=== PATIENT | male | born 1965 | race African-American/Black ===

== ENCOUNTER 2019-10-31 11:27 | Inpatient (IN) | payer MEDICAID, OTHER ==
[2019-10-31] MEDS ORDERED: Lorazepam 2 MG/ML VIAL ONE (11:41)
[2019-10-31] MEDS ORDERED: levETIRAcetam 1000 MG/100 ML PREMIX BAG ONE (11:49)
[2019-10-31 12:13] LABS: Hemoglobin 10.3 g/dL (14.0-18.0); Mean Corpuscular HGB CONC 31.8 g/dL (32.0-36.0); Mean Corpuscular Hemoglobin 27.6 pg (27.0-31.0); Mean Corpuscular Volume 86.8 fL (78.0-98.0); Mean Platelet Volume 7.2 fL (7.4-10.4); Platelet Count 181 thou/uL (130-400); RBC Distribution Width 12.6 % (11.5-14.5); Red Blood Cell (RBC) Count 3.72 mill/uL (4.70-6.10); White Blood Cell (WBC) Count 12.4 thou/uL (4.8-10.8)
[2019-10-31 12:33] LABS: ALT (SGPT) 33 U/L (8-55); AST (SGOT) 34 U/L (5-34); Albumin 2.7 g/dL (3.5-5.0); Alkaline Phosphatase 240 U/L (40-110); Anion Gap 24 mmol/L (10-20); BUN (Urea Nitrogen) 24 mg/dL (8.4-25.7); Band 22 % (5-11); Bilirubin, Total 1.6 mg/dL (0.2-1.2); CK (CPK) 132 U/L (30-200); Calc. Creatinine Clearance 0 mL/min (70-130); Calcium 8.1 mg/dL (7.8-10.44); Carbon Dioxide 17 mmol/L (22-29); Chloride 99 mmol/L (98-107); Estimated GFR-MDRD 37; Globulin 3.7 g/dL (2.4-3.5); Glucose 182 mg/dL (70-105); Lipase 18 U/L (8-78); Lymphocytes 3 % (21-51); MDiff Complete? YES; Metamyelocyte 5 % (0-0); Monocytes 1 % (0-10); Neutrophil 69 % (42-75); Nucleated RBC 1 % (0); Platelet Morphology Comment Appears Adequate; Polychromasia SLIGHT = 2-3 cells (100X) (0-2/hpf); Potassium 3.7 mmol/L (3.5-5.1); Protein, Total 6.4 g/dL (6.0-8.3); Sodium 136 mmol/L (136-145); Vacuoles SLIGHT
--- NOTE | 2019-10-31 12:33 | RAD ---
XR Chest 1 View Portable HISTORY: Unresponsive, altered mental status COMPARISON: None FINDINGS: The heart size is enlarged. There is elevation of the right hemidiaphragm. No lobar consoli dation, pneumothoraces, jeff pulmonary edema or large effusions are seen. Air bronchograms are noted in the left retrocardiac region. Possibility of developing consolidation cannot be excluded.
--- NOTE | 2019-10-31 12:35 | CT ---
CT BRAIN WITHOUT CONTRAST: HISTORY: Altered mental status COMPARISON: 08/16/2019 FINDINGS: Changes of chronic small vessel ischemic disease are again seen. Tiny calcifications are again noted. No evidence of acute infarct, hemorrhage, midline shift or abnormal extra-axial fluid collections is seen. The ventricular size is appropriate and the basilar cisterns are patent. The bony calvarium is intact. There is mucosal disease in the paranasal sinuses. IMPRESSION: No CT evidence of acute intracranial process.
[2019-10-31] MEDS ORDERED: Vancomycin 1 GM/200 ML BAG ONE (12:39)
[2019-10-31] MEDS ORDERED: Cefepime 2 GM VIAL ONE (12:39)
[2019-10-31 12:55] LABS: CKMB 1.3 ng/mL (0-6.6)
--- NOTE | 2019-10-31 14:59 | RAD ---
PORTABLE CHEST ONE VIEW: 10/31/19 at 1:38 p.m. HISTORY: Central line placement. FINDINGS/IMPRESSION: There has been interval placement of a left subclavian central line with tip in the projection of the SVC since earlier exam of 11:57 a.m. from the same date. No pneumothorax is seen. No lobar consolida tion, pneumothoraces, or pleural effusions are identified. There is continued elevation of the right hemidiaphragm. POS: OFF
[2019-10-31 15:07] LABS: Lactic Acid 8.2 mmol/L (0.5-2.2)
[2019-10-31 15:11] LABS: Bilirubin Small (Negative); Blood, Urine Large (Negative); Glucose, Urine (Dipstick) 100 mg/dL (Negative); Leukocyte Large (Negative); Nitrite Negative (Negative); Protein, Urine (Dipstick) > or equal to 300 mg/dL (Neg-Trace)
[2019-10-31 15:16] LABS: Clarity Turbid (Clear)
[2019-10-31 15:23] LABS: RBC/HPF Greater than 50 HPF (0-3); Squamous Epithelial 0-3 HPF (0-3); Transitional Epithelial 0-3 HPF (None Seen); WBC/HPF Greater Than 50 HPF (0-3)
[2019-10-31 15:24] LABS: Bacteria/HPF 1+ HPF (None Seen)
[2019-10-31 16:18] LABS: CSF Source CSF; Tube # 4
[2019-10-31 16:19] LABS: Clarity Clear (Clear)
[2019-10-31 16:21] LABS: CSF Source CSF; CSF, Glucose 120 mg/dl (40-70); CSF, Protein 58 mg/dL (15-40); Clarity Clear (Clear); Tube # 1
[2019-10-31 16:28] LABS: CSF RBC Count - Manual 18 /cu.mm (None Seen); CSF WBC/NonHematics Count-Man 3 /cu.mm (0-5)
[2019-10-31] MEDS ORDERED: Acetaminophen 325 MG TAB PO PRN (16:28)
[2019-10-31] MEDS ORDERED: Ondansetron PF 4 MG/2 ML Vial IVP PRN (16:28)
[2019-10-31] MEDS ORDERED: Acetaminophen 650 MG Suppository PR PRN (16:28)
[2019-10-31 16:29] LABS: CSF RBC Count - Manual 0 /cu.mm (None Seen); CSF WBC/NonHematics Count-Man 3 /cu.mm (0-5)
[2019-10-31] MEDS ORDERED: Lorazepam 2 MG/ML VIAL SLOW IVP PRN (16:30)
[2019-10-31] MEDS ORDERED: Vancomycin 1 GM in Premix Bag 1 BAG IVPB SCH (16:45)
[2019-10-31] MEDS ORDERED: Norepinephrine 8 MG/0.9% NS 250 ML IVPB SCH (16:45)
[2019-10-31 16:51] LABS: Color Of CSF Supernatant COLORLESS (Colorless); Tube # 2; Unspun CSF Color COLORLESS (Colorless)
[2019-10-31] MEDS ORDERED: Lacosamide 50 MG in Sodium Chloride 0.9% 50 ML IVPB SCH (17:00)
[2019-10-31] MEDS: Sodium Chloride 0.9% 1,000 ML IV SCH (17:15)
--- NOTE | 2019-10-31 17:31 | HP ---
PRIMARY CARE PROVIDER: Zurdo Jordan MD CHIEF COMPLAINT: Seizure. HISTORY OF PRESENT ILLNESS: Mr. Lau is a 53-year-old gentleman, who was seen at [facility] on October 31, 2019. He is a resident at [facility]. He was brought to the emergency room for hypotension with systolic blood pressure in the 70s and seizure activity according to EMS. EMS was called to the longterm when the nurse noticed that the blood pressures were low. It is unclear if he had fever at that time. He reportedly had eyes rolling towards the left side. There is no known history of seizures. He reportedly had a CVA in the past. There is no history of cough, nausea, vomiting or diarrhea. The patient himself is unable to answer any questions. His baseline is unclear. I tried contacting his family, but I could not reach them. Collateral history was obtained from discussion with emergency room physician and review of medical records. REVIEW OF SYSTEMS: Could not be completed due to the patient's cognitive status. MEDICAL HISTORY: Urinary retention, vascular dementia with behavioral disturbances, diabetes mellitus type 2, dyslipidemia, hypertension, ischemic cerebrovascular accident with right-sided deficits. SURGICAL HISTORY: Unable to obtain. PSYCHIATRIC HISTORY: Depression. SOCIAL HISTORY: Unable to obtain. FAMILY HISTORY: Unable to obtain. ALLERGIES: NO KNOWN DRUG ALLERGIES. HOME MEDICATIONS: 1. Amlodipine 10 mg daily. 2. Ascorbic acid 500 mg daily. 3. Aspirin 81 mg daily. 4. Atorvastatin 40 mg daily. 5. Coreg 12.5 mg 2 times a day. 6. Chlorthalidone 25 mg daily. 7. Glipizide 2.5 mg daily and 5 mg in the morning. 8. Metformin 1000 mg 2 times a day. 9. Magnesium oxide 400 mg daily. 10. Multivitamins one tablet daily. 11. Paxil 20 mg daily. 12. Polyethylene glycol p.r.n. 13. Zinc 220 mg daily. PHYSICAL EXAMINATION: GENERAL: On examination, Mr. Lau is obtunded, not waking up. He was initially hypotensive when he arrived at the emergency room, with a blood pressure of 87/66. Currently, he has blood pressure of 110/76, pulse 114, respiratory rate 19, and oxygen saturation 98% on room air. T-max in the emergency room was 99.6 degrees Fahrenheit. EYES: He has scleral icterus. ENT: Mucosal membranes are moist. NECK: Trachea is midline. There is no cervical lymphadenopathy. RESPIRATORY: Accessory muscles of breathing are not active. Chest wall movements are symmetric bilaterally. Lungs are clear to auscultation without wheeze, rhonchi or crepitations. CARDIOVASCULAR: S1 and S2 are heard, tachycardic and regular. Peripheral pulses palpable. ABDOMEN: Soft, nontender, bowel sounds are heard. NEUROLOGIC: Full neurologic examination was not possible secondary to the patient's noncooperation. There is no facial droop. Deep tendon reflexes are 2+, plantars downgoing bilaterally. MUSCULOSKELETAL: Could not assess secondary to the patient's obtunded status. SKIN: No rashes. He has multiple keloids over his chest. LYMPHATIC: No cervical lymphadenopathy. PSYCHIATRIC: Unable to assess mood, affect or orientation to person, place or time. LABORATORY DATA: Mr. Lau's labs and investigations were reviewed. I reviewed his electrocardiogram, which shows sinus tachycardia, no ST changes to suggest an acute coronary syndrome. I also reviewed his chest x-ray, which shows cardiomegaly. There is no consolidation. He has leukocytosis with 12,400 white cells, of which 69% are neutrophils and 22% band neutrophils, normocytic anemia with hemoglobin of 10.3, normal platelet count, normal sodium, normal potassium, normal blood urea nitrogen, elevated creatinine of 2.26, elevated anion gap of 24, decreased carbon dioxide of 17, lactic acid elevated at 13.1, total bilirubin elevated at 1.6, normal AST, normal ALT, elevated alkaline phosphatase of 240, normal creatine kinase, indeterminate troponin-I of 0.070, elevated BNP of 245, decreased albumin of 2.7, normal TSH, elevated prolactin level of 88.4. Urinalysis is positive for blood and leukocyte esterase, negative for nitrite. CSF studies are pending. ASSESSMENT AND PLAN: Mr. Lau is a pleasant 53-year-old gentleman, who was seen at [facility] on October 31, 2019. His problem list includes: 1. Sepsis: Mr. Lau is presenting with sepsis, etiology is unclear. It is possible he may have aspirated during his seizure. Alternatively, it could be secondary to urinary tract infection. Meningitis is being ruled out. COVID-19 is being ruled out. He will be admitted to the CCU mainly because of episodes of hypotension in the emergency room. He already has a central line placed by the emergency room physician. He has received vancomycin and cefepime. I will continue these and add metronidazole until he stabilizes. 2. New-onset seizures: Etiology is unclear. It is possible that the seizure was provoked by episode of hypotension. I will obtain MRI of the brain. He has received Keppra in the emergency room, which I will continue. Neurology Service will be consulted for opinion and help with management. He will be on seizure precautions. 3. Hypotension: The patient appears to be responding to fluid resuscitation. We will continue fluids. We will start Levophed if hypotension recurs and the patient does not respond to intravenous fluids. 4. Diabetes mellitus, type 2: I will start him on Accu-Cheks and insulin sliding scale. The patient will be n.p.o. until the mental status improves. 5. Hypertension: We will hold his antihypertensives for now, given episodes of hypotension. We will reassess antihypertensives after he improves. 6. Dyslipidemia: We will resume statin when the patient is able to take medications. 7. Lactic acidosis: Most likely secondary to seizure, although lactic acidosis secondary to severe sepsis is possible as well. 8. Abnormal LFTs: Could be secondary to hypotension and sepsis. We will recheck LFTs in the morning. Many thanks for allowing me to participate in your patient's care. Please feel free to contact me with any questions or concerns. LEVEL OF RISK: High. LEVEL OF COMPLEXITY: High. ADDENDUM: Mr. Lau also appears to have acute kidney injury, most likely secondary to severe sepsis. I will provide him intravenous hydration and recheck his creatinine. His CK level is normal. Therefore, it does not appear to be secondary to . Job ID: [id number]
[2019-10-31] MEDS: metroNIDAZOLE 500 MG in Premix Bag 1 BAG IVPB SCH (18:26)
[2019-10-31 18:49] LABS: Troponin I 0.065 ng/mL (< 0.028)
[2019-10-31] MEDS ORDERED: Famotidine 20 MG TAB PO SCH (21:00)
[2019-10-31] MEDS ORDERED: levETIRAcetam In NaCl (Iso-Os) 1,000 MG in Premix Bag 1 BAG IVPB SCH (21:00)
[2019-10-31] MEDS: Heparin 5,000 UNITS/ML VIAL SC SCH (21:28)
[2019-10-31] MEDS: Famotidine/PF 20 mg/2ml Vial SLOW IVP SCH (21:31)
--- NOTE | 2019-10-31 21:50 | CON ---
DATE OF CONSULTATION: 10/31/2019 This is a consultation request by Dr. Myrick for ICU management. HISTORY OF PRESENT ILLNESS: This is a 53-year-old male, who presented to the emergency room from a skilled nursing with low blood pressure and some seizure activity. He had to be started on a Levophed drip as his blood pressure did not completely respond to fluids. Apparently, he can talk some at baseline, but has not been talking. He was found to have a malpositioned Palomino with evidence of urinary tract infection. PAST MEDICAL HISTORY: 1. Dementia. 2. Some type of behavioral disorder. 3. Diabetes mellitus type 2. 4. Hyperlipidemia. 5. Hypertension. 6. Vascular disease. 7. Urinary retention. PAST SURGICAL HISTORY: Unknown. SOCIAL HISTORY: Unknown. FAMILY HISTORY: Unknown. ALLERGIES: NONE. MEDICATIONS: Prior to admission; 1. Amlodipine. 2. Ascorbic acid. 3. Aspirin. 4. Atorvastatin. 5. Coreg. 6. Chlorthalidone. 7. Glipizide. 8. Metformin. 9. Magnesium oxide. 10. Paxil. 11. Polyethylene glycol. 12. Zinc. REVIEW OF SYSTEMS: Cannot be obtained secondary to the patient's altered mental status. PHYSICAL EXAMINATION: VITAL SIGNS: Pulse 131, blood pressure 101/60, O2 saturation 93%, and respiratory rate 24. He is currently on Levophed drip. He is also on normal saline. HEENT: Unremarkable. NECK: No adenopathy or JVD. CHEST: Has a bit keloid scar. LUNGS: Clear. CARDIAC: S1 and S2. Regular without audible murmur. ABDOMEN: Soft and nontender to palpation. : He has bleeding around his urethral meatus. He has a Palomino catheter in place. EXTREMITIES: He has no cyanosis or edema. His skin looks intact throughout. IMAGING DATA: His chest x-ray shows a left subclavian central line in place. There is no obvious mass, effusion, or infiltrate. His heart size is mildly enlarged. LABORATORY DATA: White blood cell count 12.4, hematocrit 32, and platelet count 181, with 69% neutrophils and 22% bands. BNP level is 245 and troponin 0.065. Prolactin level of 88.4. Sodium 136, potassium 3.7, chloride 99, CO2 of 17, BUN 24, creatinine 2.3, and glucose 182. Urinalysis showed greater than 50 white blood cells. ASSESSMENT: 1. Hypotension. 2. Seizure episode. 3. Sepsis secondary to urinary tract infection. 4. Possible aspiration pneumonia after seizure. 5. Diabetes mellitus. PLAN: 1. He will be kept in the ICU on a Levophed drip to begin IV fluids. Agree with cefepime, vancomycin, and metronidazole. 2. Continue IV hydration. 3. Add Pepcid for GI prophylaxis. 4. He is on heparin for DVT prophylaxis. Following encompassed 70 minutes time. Job ID: [id number]
[2019-11-01] MEDS: Sodium Chloride 0.9% 1,000 ML IV SCH ×3 (01:38→13:53)
[2019-11-01] MEDS: metroNIDAZOLE 500 MG in Premix Bag 1 BAG IVPB SCH ×2 (01:38→09:02)
[2019-11-01 05:46] LABS: Band 25 % (5-11); Hemoglobin 9.7 g/dL (14.0-18.0); Lymphocytes 1 % (21-51); MDiff Complete? YES; Mean Corpuscular HGB CONC 31.3 g/dL (32.0-36.0); Mean Corpuscular Volume 86.2 fL (78.0-98.0); Mean Platelet Volume 8.2 fL (7.4-10.4); Monocytes 2 % (0-10); Neutrophil 71 % (42-75); Platelet Count 154 thou/uL (130-400); Platelet Morphology Comment Appears Adequate; RBC Distribution Width 12.9 % (11.5-14.5); RBC Morphology Normal; Reactive Lymphocytes 1 % (0-10); White Blood Cell (WBC) Count 38.1 thou/uL (4.8-10.8)
[2019-11-01 05:50] LABS: Anion Gap 17 mmol/L (10-20); BUN (Urea Nitrogen) 38 mg/dL (8.4-25.7); Calc. Creatinine Clearance 35 mL/min (70-130); Calcium 7.3 mg/dL (7.8-10.44); Carbon Dioxide 20 mmol/L (22-29); Chloride 103 mmol/L (98-107); Estimated GFR-MDRD 24; Glucose 253 mg/dL (70-105); Potassium 3.9 mmol/L (3.5-5.1); Sodium 136 mmol/L (136-145)
[2019-11-01 05:52] LABS: ALT (SGPT) 44 U/L (8-55); AST (SGOT) 63 U/L (5-34); Albumin 2.5 g/dL (3.5-5.0); Alkaline Phosphatase 117 U/L (40-110); Bilirubin, Direct 1.7 mg/dL (0.1-0.3); CK (CPK) 2689 U/L (30-200); Protein, Total 6.2 g/dL (6.0-8.3)
[2019-11-01] MEDS ORDERED: Meropenem 1 GM in Sodium Chloride 0.9% 100 ML IVPB SCH (08:45)
[2019-11-01] MEDS ORDERED: Sodium Chloride 0.9% 1,000 ML IV SCH ×3 (08:45→19:24)
--- NOTE | 2019-11-01 08:49 | PRG ---
DATE OF SERVICE: 11/01/2019 TIME SPENT: 35 minutes of critical care time. SUBJECTIVE: The patient remains in the CCU on Levophed drip. He is now starting to arouse. He said basically just groans when I am asking questions. OBJECTIVE: VITAL SIGNS: On exam, temperature is 99, pulse 126, blood pressure 83/53, and O2 saturation 99%. A 24-hour intake 1287, output 155. HEENT: Unremarkable. NECK: No JVD. CHEST: Clear. CARDIAC: S1 and S2. Regular. Tachycardic. ABDOMEN: Soft. EXTREMITIES: No edema. LABORATORY DATA: Sodium of 136, potassium 3.9, chloride 103, CO2 of 20, BUN 38, creatinine 3.3, and glucose 253. CPK 2689. Lactate 8.2. White blood cell count 38.1, hematocrit 31, and platelet count 154. Cultures have grown out gram-negative rods from the Palomino and 2/2 culture balls. ASSESSMENT: Gram-negative sepsis from urinary tract infection. PLAN: 1. Add Levaquin to the cefepime and double cover for gram-negatives for the time being. 2. Discontinue vancomycin since this appears to be gram-negative sepsis and not staphylococcal sepsis bolus him a liter of saline. Dr. Nuñez has increased his baseline rate on his IV fluids. Job ID: [id number]
[2019-11-01] MEDS ORDERED: Enoxaparin Sodium 40 MG/0.4 ML SYRINGE SC SCH (09:00)
[2019-11-01] MEDS: MEROPENEM 1 GM/50 ML 1 GM in Premix Bag 1 BAG IVPB SCH ×2 (09:01→17:23)
[2019-11-01] MEDS: Heparin 5,000 UNITS/ML VIAL SC SCH ×3 (09:01→20:30)
--- NOTE | 2019-11-01 09:52 | CON ---
DATE OF CONSULTATION: 11/01/2019 CONSULTING PHYSICIAN: Hospitalist Service. IMPRESSION: 1. Seizures, likely secondary to toxic and metabolic stress. 2. Renal failure. 3. Acidosis. PLAN: Continue Keppra 500 mg twice a day until the patient has recovered from his ongoing infectious process. HISTORY OF PRESENT ILLNESS: Mr. Lau is a 53-year-old black male, who is a skilled nursing resident. Reportedly, he is limitedly conversant prior to admission. He was witnessed to have a seizure and was given Ativan and Keppra in the emergency room. He does not have any further seizure activity. He has regained consciousness, but is relatively noncommunicative and the nurse reports that he is only able to say no and does not really follow any commands. No further seizure activities occurred since admission. He was noted to be in renal failure with elevated lactic acid, elevated white blood cell count, and urinalysis suggestive of infectious process. CT of the brain showed some small-vessel ischemic changes, but no other structural abnormalities. There is no past history of seizures known. PAST MEDICAL HISTORY: Otherwise unknown. ALLERGIES: NONE. SOCIAL HISTORY: No tobacco or alcohol use reported. FAMILY HISTORY: Not obtainable. REVIEW OF SYSTEMS: Not obtainable. PHYSICAL EXAMINATION: GENERAL: He is a well-nourished, middle-aged man, lying in bed, in no acute distress. VITAL SIGNS: Stable. Although, he has been hypotensive since admission. HEENT: Pupils are equal and reactive. Eyes are conjugate. Conjunctivae are clear. Cranium, normocephalic and atraumatic. NECK: Supple. EXTREMITIES: No cyanosis. NEUROLOGIC: He is mute and not following commands, although appears to be awake and moving spontaneously. There does not appear to be any asymmetry to his movements. Sensations intact. No abnormal movements were seen. IMAGING: EKG shows sinus rhythm. SUMMARY: This is a middle-aged man with multiple metabolic and toxic process ongoing, which likely provoked his seizure activity. Agree with current management. He may not need long-term anticonvulsants, therefore could be discontinued at a later date. Job ID: [id number]
[2019-11-01] MEDS ORDERED: Cefepime 2 GM in Sodium Chloride 0.9% 100 ML IVPB SCH (12:00)
[2019-11-01] MEDS ORDERED: Vancomycin HCl 1.25 GM in Sodium Chloride 0.9% 250 ML 250 ML IVPB SCH (13:00)
[2019-11-01 13:03] LABS: Creatinine, Urine 130.6 mg/dL (63-166)
--- NOTE | 2019-11-01 13:26 | CON ---
DATE OF CONSULTATION: 11/01/2019 SERVICE: Nephrology. REASON FOR CONSULTATION: Acute kidney injury. REQUESTING PHYSICIAN: Billy Myrick MD HISTORY OF PRESENT ILLNESS: A 53-year-old male with known history of prior urinary retention, vascular dementia associated with behavioral disturbance, diabetes mellitus, hypertension and prior CVA, skilled nursing resident, who was brought in from the skilled nursing due to hypotension. The patient is still altered and was unable to provide any history. All history was obtained from review of medical records. The patient was reportedly seen by EMS when skilled nursing staff called them due to hypotension and new onset seizure activity. The patient was found to be hypertensive and was treated with IV fluid, and subsequently admitted to the hospital. There was no history of nausea, vomiting, or diarrhea then. However, since hospitalization, the patient reportedly had massive loose stool and also had urinalysis consistent with urinary tract infection and blood culture growing E coli. On presentation, creatinine was found to be elevated and that increased further this morning, necessitating Nephrology consult. The patient with normal creatinine currently, but on presentation was noted to have elevated CPK of more than 2800. Blood pressure remained soft and had further fluid resuscitation as well as commencement of pressor support with Levophed earlier today. PAST MEDICAL HISTORY: 1. History of urinary retention. 2. Vascular dementia with behavioral disturbance. 3. Prior ischemic cerebrovascular accident with right-sided weakness. 4. Dyslipidemia. 5. Hypertension. 6. Diabetes mellitus. 7. skilled nursing resident. PAST SURGICAL HISTORY: Could not be obtained due to the patient's condition. PSYCHIATRIC HISTORY: Depression. FAMILY HISTORY: Unable to obtain due to the patient's condition. SOCIAL HISTORY: Unable to obtain due to the patient's condition. ALLERGIES: NO KNOWN DRUG ALLERGIES REPORTED. PRIOR TO HOSPITAL MEDICATIONS: As follows: 1. Amlodipine 10 mg p.o. daily. 2. Ascorbic acid 500 mg p.o. daily. 3. Aspirin 81 mg p.o. daily. 4. Lipitor 40 mg p.o. daily. 5. Coreg 12.5 mg p.o. b.i.d. 6. Chlorthalidone 25 mg p.o. daily. 7. Glipizide 2.5 mg in the morning and 5 mg in the evening. 8. Metformin 1000 mg p.o. b.i.d. 9. Magnesium oxide 400 mg p.o. daily. 10. Multivitamin 1 tablet daily. 11. Paxil 20 mg p.o. daily. 12. MiraLAX p.r.n. 13. Zinc 220 mg p.o. daily. CURRENT HOSPITAL MEDICATIONS: 1. Normal saline at 100 mL/hour. 2. Keppra 500 mg IV b.i.d. 3. Levofloxacin 750 mg q.2 days. 4. Levophed infusion. 5. Meropenem 1 g q.8 hours. 6. Metronidazole 500 mg q.8 hours. 7. Vancomycin 1.25 g as per pharmacy. 8. Pepcid 20 mg p.o. daily at the evening. 9. Heparin subcu 5000 units t.i.d. 10. Lorazepam 1 mg q.3 hours p.r.n. for seizure. 11. Ondansetron 4 mg q.6 hours p.r.n. for nausea and vomiting. 12. Acetaminophen 650 mg p.o. q.4 hours p.r.n. for fever or pain. REVIEW OF SYSTEMS: Could not be obtained due to the patient's condition. PHYSICAL EXAMINATION: VITAL SIGNS: Temperature 98.2, pulse 120, respiratory rate 24, SpO2 of 99%, blood pressure 87/57. GENERAL: Middle-age male, in no obvious distress. The patient is lethargic. Tries to open eyes to stimulation. HEENT: Normocephalic and atraumatic. Oral mucosa is mildly dry. NECK: Supple with no JVD. CARDIOVASCULAR: Regular rhythm and rate, but tachycardic. RESPIRATORY: Fair air entry bilaterally with transmitted breath sounds. No obvious respiratory distress appreciated. GASTROINTESTINAL: Full and soft with lower abdominal tenderness. Bowel sound is normoactive. UROGENITAL: Palomino catheter is in place. EXTREMITIES: Grossly normal looking, atraumatic with no edema or erythema. SKIN: Rather dry. CENTRAL NERVOUS SYSTEM: The patient is lethargic. Opens eyes and tries to follow commands. Says few words. Attempts to move extremities with stimulation. DIAGNOSTIC DATA: CBC today showed WBC count of 38.1, hemoglobin of 9.7, MCV of 86.2, platelet of 154. CMP today showed sodium 136, potassium 3.9, chloride 103, CO2 of 20, BUN 38, creatinine 3.34, glucose 253, calcium 7.3, total bilirubin 2.0, AST 63, ALT 44, alkaline phosphatase 117, total protein 6.2, albumin 2.5. CPK today is 2689. Yesterday, however, CPK was 132. CMP on presentation, however, showed sodium 136, potassium 3.7, chloride 99, CO2 of 19, BUN 24, creatinine 2.26, glucose 182, calcium 8.1, total bilirubin 1.6, AST 34, ALT 33, alkaline phosphatase 240, total protein 6.4, albumin 2.7. Lactic acid on presentation yesterday was 13.1 and repeat 3 hours later was 8.2. Urinalysis performed yesterday showed pink turbid urine with pH of 6.5, specific gravity of 1.020, urine protein of greater or equal to 300 mg/dL, glucose 100, negative ketone/blood, negative nitrite, small bilirubin, and large leukocyte esterase with microscopy showing greater than 50 rbc and greater than 50 wbc with 1+ bacteria. ASSESSMENT: 1. Acute kidney injury: Creatinine has gone up from 2 on presentation to above 3 today. Baseline creatinine is unknown. It is possible that the patient has baseline kidney disease given significant risk factors of prior cerebrovascular accident, dyslipidemia, hypertension, and diabetes mellitus. Acute kidney injury is most likely due to hemodynamic factors related to shock. Some contribution from rhabdomyolysis cannot be ruled out. 2. Presumed chronic kidney disease. 3. Urinary retention. 4. Septic shock: Most likely due to urinary tract infection and bacteremia. Occult abdominal pathology cannot be ruled out given abdominal tenderness. 5. Rhabdomyolysis: Most likely related to seizure episode. 6. Volume contraction/intravascular volume depletion. 7. New onset seizure disorder: Etiology is unclear. 8. Uncontrolled diabetes mellitus. 9. Acute mental status change. 10. Baseline vascular dementia with behavioral changes. PLAN: 1. Aggressive fluid therapy with normal saline 2 L bolus followed by 200 mL/hr. Agree with Levophed. 2. We will consider diuretics if after fluids resuscitation, urine output is still poor. 3. We will also get CT scan of the abdomen and pelvis without contrast. 4. We will also get urine electrolytes and urine protein. 5. We will follow electrolytes, CPK and renal function. 6. Further treatment to follow depending on hospital course. 7. Avoid nephrotoxic agents. Many thanks for involving us in the care of this patient. We will follow along with you. Job ID: [id number] [facility]
[2019-11-01 17:17] LABS: SARS-CoV-2 MS2 Positive; SARS-CoV-2 N Gene Negative; SARS-CoV-2 S Gene Negative; SARS-CoV-2 orf1ab Negative
--- NOTE | 2019-11-01 18:13 | PDOC.HOSPP ---
- Subjective Encounter Date: 11/01/19 Encounter Time: 18:47 Subjective: Pt seen for followup re: sepsis. Pt is awake and alert, not speaking, could not complete ROS. - Objective Vital Signs & Weight: Vital Signs (12 hours) Temp Pulse Ox 11/01/19 15:00 98.3 F 11/01/19 12:00 98.3 F 11/01/19 09:00 98.2 F 11/01/19 08:00 97 Weight Weight 209 lb 10.554 oz Most Recent Monitor Data Heart Rate from ECG 113 NIBP 103/64 NIBP BP-Mean 77 Respiration from ECG 19 SpO2 99 I&O: 10/31/19 11/01/19 11/02/19 06:59 06:59 06:59 Intake Total 1287 2200 Output Total 155 115 Balance 1132 2085 Result Diagrams: 11/01/19 05:00 11/01/19 17:00 Additional Labs: Labs and MARs reviewed by me EKG Reviewed by me: Yes (Tele: sinus tachycardia) Hospitalist ROS - Review of Systems ROS unobtainable: due to mental status - Medication Medications: Active Medications Generic Name Dose Route Start Last Admin Trade Name Freq PRN Reason Stop Dose Admin Famotidine 20 mg 10/31/19 21:00 10/31/19 21:31 Pepcid SLOW IVP 20 mg HS OSCAR Administration Heparin Sodium (Porcine) 5,000 units 10/31/19 21:00 11/01/19 13:51 Heparin SC 5,000 units TID OSCAR Administration Levetiracetam 500 mg/ Device 100 mls @ 200 mls/hr 10/31/19 21:00 11/01/19 09: 01 IVPB 100 mls BID OSCAR Administration Norepinephrine Bitartrate 250 mls @ 0 mls/hr 10/31/19 16:45 10/31/19 18:25 Levophed IVPB 250 mls INF OSCAR Administration Protocol Titrate Sodium Chloride 1,000 mls @ 200 mls/hr 11/01/19 07:53 11/01/19 13:53 Normal Saline 0.9% IV 1,000 mls .Q5H OSCAR Administration Levofloxacin 750 mg/ Device 150 mls @ 100 mls/hr 11/01/19 09:00 11/01/19 09: 04 IVPB 150 mls Q2D OSCAR Administration Meropenem 1 gm/ Device 50 mls @ 200 mls/hr 11/01/19 10:00 11/01/19 17:23 IVPB 50 mls Q8H OSCAR Administration Sodium Chloride 10 ml 10/31/19 21:00 11/01/19 10:39 Flush - Normal Saline IVF Not Given Q12HR OSCAR - Exam General Appearance: awake alert Eye: scleral icterus ENT: normocephalic atraumatic, no oropharyngeal lesions Neck: supple, no thyromegaly Heart - other findings: S1, s2, reg, tachy Respiratory: CTAB Gastrointestinal: soft, non-tender, normal bowel sounds, distended Extremities: no cyanosis Neurological - other findings: Unable to assess Psychiatric: normal affect Hosp A/P (1) Septic shock Code(s): A41.9 - SEPSIS, UNSPECIFIED ORGANISM; R65.21 - SEVERE SEPSIS WITH SEPTIC SHOCK Status: Acute (2) Bacteremia Code(s): R78.81 - BACTEREMIA Status: Acute (3) UTI (urinary tract infection) Status: Acute (4) Seizure Code(s): R56.9 - UNSPECIFIED CONVULSIONS Status: Acute (5) Abnormal LFTs Code(s): R94.5 - ABNORMAL RESULTS OF LIVER FUNCTION STUDIES Status: Acute (6) HIEN (acute kidney injury) Code(s): N17.9 - ACUTE KIDNEY FAILURE, UNSPECIFIED Status: Acute (7) Rhabdomyolysis Code(s): M62.82 - RHABDOMYOLYSIS Status: Acute (8) Lactic acidosis Code(s): E87.2 - ACIDOSIS Status: Acute - Plan Pt started on meropenem to cover ESBL+ organisms, is also on levofloxacin. Septic shock/UTI/bacteremia with E. coli, await sensitivities. Recheck LFTs and CK. Continue IV fluids. Pt is also on levophed. COVID-19 negative. PCCM/Nephrology/Neurology/ID consulted.
[2019-11-01 18:38] LABS: Anion Gap 16 mmol/L (10-20); BUN (Urea Nitrogen) 46 mg/dL (8.4-25.7); CK (CPK) 2156 U/L (30-200); Calc. Creatinine Clearance 29 mL/min (70-130); Calcium 6.7 mg/dL (7.8-10.44); Carbon Dioxide 19 mmol/L (22-29); Chloride 107 mmol/L (98-107); Estimated GFR-MDRD 19; Glucose 268 mg/dL (70-105); Potassium 3.7 mmol/L (3.5-5.1); Sodium 138 mmol/L (136-145)
[2019-11-01] MEDS: Sodium Bicarbonate 50 MEQ in Sodium Chloride 0.45% 1,000 ML IV SCH (20:29)
[2019-11-01] MEDS: Famotidine/PF 20 mg/2ml Vial SLOW IVP SCH (20:30)
--- NOTE | 2019-11-01 21:40 | CON ---
DATE OF CONSULTATION: 11/01/2019 REASON FOR CONSULTATION: Bacteremia. HISTORY OF PRESENT ILLNESS: A 53-year-old patient of [facility] with a history of prior CVA with quite significant neurological impairment, who developed hypotension and fever and some eye movements that were concerning for possible seizure activity, although he did not have tonic-clonic activity witnessed. Did not have any respiratory symptoms of vomiting or diarrhea. He is unable to provide a personal history. On arrival, his BP was 87/66, pulse 117, respirations 22, and O2 saturation 97. Pertinent findings, he appeared confused and lethargic. His respiratory exam was normal. He is tachycardic, but no murmurs were noticed. No S3. Abdomen exam was normal. Palomino catheter was inserted. Apparently, there has been some history of retention in the past. There is minimal breakdown in the sacral area. Other findings included white cell count 12.4, hemoglobin 10.3, and platelets 181 with 22% bands, and lymphocytes were 3%. Other findings include a creatinine 2.26 and bilirubin 1.6, alkaline phosphatase 240 with albumin 2.7. Urinalysis greater than 50 wbc's, greater than 50 rbc's, and protein greater than 300. A CSF evaluation was done and there were only 3 nucleated cells. The protein was mildly elevated at 58 and glucose was 120. We now have 2 sets of blood cultures with Klebsiella. Of note, in August 15, he had Klebsiella pneumoniae with a broad susceptibility profile identified. Currently, Mr. Lau is obtunded. He is in the ICU because of his penitentiary origin, COVID test has been performed. He has had large liquid stool output today and he is unable to provide any subjective information. PAST MEDICAL HISTORY: Includes urinary retention, dementia probably vascular, prior CVA, diabetes type 2, hyperlipidemia, hypertension, and chronic right hemiparesis. 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 Prior smoking. ALLERGIES: NONE. CURRENT MEDICATIONS: 1. Pepcid. 2. Heparin. 3. Keppra. 4. Levaquin. 5. Meropenem. 6. Flagyl. PHYSICAL EXAMINATION: VITAL SIGNS: T-max 98.3, BP 92/61, pulse 71, respirations 19, and O2 saturation 98. He is on pressors at the moment. SKIN: Shows no areas of skin breakdown. The patient has a peripheral IV access and a Palomino catheter. No lymphadenopathy. HEENT: Ocular movements are conjugate. No nystagmus. Pupils are constricted. Oral cavities are somewhat dry, still few teeth in place. NECK: Somewhat stiff in all directions. No jugular vein distention. LUNGS: With diminished aeration of the bases, but no crackles or wheezing. HEART: S1 and S2. Regular rate. No S3 or S4. ABDOMEN: Soft, not distended or tender. : Palomino catheter in place. No genital abnormalities. EXTREMITIES: Plantar responses are withdrawal, right and left side. No clonus. Pulses 1+ in dorsalis pedis. No edema. NEUROLOGIC: He is obtunded and cannot interact with the examiner. LABORATORY DATA: White cell count is up to 38,000, hemoglobin 9.7, platelets 154 with 25% bands. Chemistries shows a creatinine up to 3.34 and bilirubin 1.7. CK was 2600. Albumin 2.5. IMAGING DATA: Included a brain CT with no acute intracranial process identified and a chest x-ray with a left subclavian central line. No consolidation noted. No effusions. Elevation in right hemidiaphragm. ASSESSMENT AND PLAN: Prior cerebrovascular accident with significant neurological residual impairment, penitentiary residential status, and history of urinary obstruction due to likely benign prostatic hyperplasia, who now presents with urosepsis, undergoing COVID rule out because of his epidemiological circumstances, but Klebsiella bacteremia from the urinary tract source is likely culprit here. He will need imaging of the kidneys and bladder with CT stone protocol or bedside ultrasound hopefully tomorrow when the COVID is completed. In the meantime, we will discontinue all the antimicrobials except for meropenem. Most likely, we will be able to convert him to Rocephin daily, once we have the final susceptibility of the organism. The [employer] test will inform as if there is evidence to suggest extended-spectrum beta-lactamases phenotype. Also this must be the same organism that was isolated from the urine in August. Job ID: [id number]
--- NOTE | 2019-11-01 22:58 | CT ---
CT OF THE ABDOMEN AND PELVIS WITHOUT IV CONTRAST INDICATION: Abdominal pain with sepsis and obstructive uropathy COMPARISON: Noncontrast CT abdomen and pelvis dated August 23, 2019 FINDINGS: The lack of IV contrast limits evaluation of the solid organs of the abdomen and pelvis. ABDOMEN: Lung bases: There are small bilateral pleural effusions and moderate to prominent cardiomegaly Liver: No focal lesion. Gallbladder: Normal appearing. Pancreas: Normal. Adrenal glands: Normal. Spleen: Stable mild splenomegaly measuring 14.4 cm Kidneys and ureters: Normal. No hydronephrosis. Vasculature: Normal. Lymph nodes:No lymphadenopathy. Free fluid in abdomen:No free fluid is evident. PELVIS: Small and large bowel: Normal Appendix:Normal Bladder: Partially decompressed with a Palomino catheter Rectal and perirectal soft tissues:Normal. Reproductive structures: Normal. Free fluid in pelvis: No free fluid is evident. Lymphadenopathy pelvis: No lymphadenopathy is evident. Osseous structures: No acute osseous abnormality. No destructive osteolytic or osteoblastic lesion i s identified. There is scattered degenerative and osteoarthritic changes. Soft tissues:Mild anasarca IMPRESSION: 1. Findings suspicious for mild CHF. 2. Stable mild splenomegaly 3. No renal or ureteral calculus.
[2019-11-02] MEDS: Sodium Bicarbonate 50 MEQ in Sodium Chloride 0.45% 1,000 ML IV SCH ×3 (02:05→15:25)
[2019-11-02] MEDS: MEROPENEM 1 GM/50 ML 1 GM in Premix Bag 1 BAG IVPB SCH (04:27)
[2019-11-02 05:23] LABS: Anion Gap 15 mmol/L (10-20); BUN (Urea Nitrogen) 49 mg/dL (8.4-25.7); CK (CPK) 1813 U/L (30-200); Calc. Creatinine Clearance 27 mL/min (70-130); Calcium 6.8 mg/dL (7.8-10.44); Carbon Dioxide 21 mmol/L (22-29); Chloride 108 mmol/L (98-107); Estimated GFR-MDRD 17; Glucose 159 mg/dL (70-105); Potassium 3.2 mmol/L (3.5-5.1); Sodium 141 mmol/L (136-145)
[2019-11-02 05:28] LABS: ALT (SGPT) 38 U/L (8-55); AST (SGOT) 50 U/L (5-34); Albumin 2.3 g/dL (3.5-5.0); Alkaline Phosphatase 136 U/L (40-110); Bilirubin, Direct 1.6 mg/dL (0.1-0.3); Bilirubin, Total 1.9 mg/dL (0.2-1.2); Protein, Total 5.9 g/dL (6.0-8.3)
[2019-11-02 05:29] LABS: Band 10 % (5-11); Hemoglobin 9.1 g/dL (14.0-18.0); Hypochromia SLIGHT = 6-15 cells (100X) (0-5/hpf); Lymphocytes 1 % (21-51); MDiff Complete? YES; Mean Corpuscular HGB CONC 32.3 g/dL (32.0-36.0); Mean Corpuscular Volume 86.7 fL (78.0-98.0); Mean Platelet Volume 8.4 fL (7.4-10.4); Metamyelocyte 3 % (0-0); Monocytes 6 % (0-10); Neutrophil 80 % (42-75); Platelet Count 136 thou/uL (130-400); Platelet Morphology Comment Appears Adequate; Red Blood Cell (RBC) Count 3.24 mill/uL (4.70-6.10); White Blood Cell (WBC) Count 28.5 thou/uL (4.8-10.8)
[2019-11-02] MEDS ORDERED: Potassium Chloride 20 MEQ TAB PO SCH (06:15)
[2019-11-02] MEDS ORDERED: Furosemide 100 MG/10 ML VIAL SLOW IVP SCH (06:15)
[2019-11-02] MEDS ORDERED: Potassium Chloride 40 MEQ in Premix Bag 1 BAG IVPB SCH (07:00)
[2019-11-02] MEDS: Heparin 5,000 UNITS/ML VIAL SC SCH ×3 (08:57→21:06)
--- NOTE | 2019-11-02 09:53 | PRG ---
DATE OF SERVICE: 11/02/2019 SUBJECTIVE: He has begun to wake up and communicate. Had a good night. OBJECTIVE: VITAL SIGNS: On exam, temperature 97.7, pulse 103, blood pressure 111/74, and O2 saturation 97%. He has been weaned off the Levophed drip. HEENT: Unremarkable. NECK: No JVD. CHEST: Clear. CARDIAC: S1 and S2. Regular. ABDOMEN: Soft. EXTREMITIES: No edema. LABORATORY DATA: Sodium 141, potassium 3.2, chloride 108, CO2 of 21, BUN 49, creatinine 4.4, and glucose 159. CPK 1813. White blood cell count 28.5, hematocrit 28.1, and platelet count 136. Cultures grew out Klebsiella, Escherichia coli, sensitive to all antibiotics. ASSESSMENT: 1. Sepsis secondary to polymicrobial urinary tract infection. 2. Seizure. 3. Rhabdomyolysis. 4. Acute renal dysfunction secondary to rhabdomyolysis. PLAN: 1. Continue hydration. 2. Can transfer to [facility]. 3. Change antibiotics to straight ceftriaxone since Levaquin could lower his seizure threshold. 4. He is having an EEG this morning. 5. Advance diet. 6. Continue to monitor labs. Job ID: [id number]
[2019-11-02] MEDS ORDERED: Calcium Gluconate 4.6 MEQ in Sodium Chloride 0.9% 100 ML IVPB ONE (10:06)
[2019-11-02] MEDS ORDERED: Calcium Carbonate 600 MG + Vit D TAB PO SCH (10:15)
[2019-11-02] MEDS: Calcium Carbonate 600 MG + Vit D TAB PO SCH (10:39)
[2019-11-02] MEDS: cefTRIAXone\\ROCEPHIN 2 GM in Sodium Chloride 0.9% 100 ML IVPB SCH (10:42)
--- NOTE | 2019-11-02 10:46 | PRG ---
DATE OF SERVICE: 11/02/2019 SERVICE: Nephrology. SUBJECTIVE: A 53-year-old male admitted from halfway due to acute onset of hypotension and seizure disorder. The patient was subsequently found to have a septic shock, thought to be from urinary tract. Nephrology has seen the patient for rhabdomyolysis and HIEN. The patient was aggressively resuscitated yesterday. Urine output remained poor and creatinine continued to trend up. He is beginning to be more awake and saying some few words, though mostly mumbling. No nausea or vomiting. OBJECTIVE: VITAL SIGNS: Temperature 97.7, pulse 103, respiratory rate 19, SpO2 of 97, blood pressure 108/88. The patient is still on pressors, however. INR in the last 24 hours showed total intake of 6621 with total output of 651. HEENT: Normocephalic, atraumatic. Oral mucosa is moist. NECK: Supple with no JVD. CARDIOVASCULAR: Regular rhythm and rate, but tachycardic. RESPIRATORY: Fair air entry bilaterally with some transmitted breath sounds, but no obvious crackle or rhonchi or use of accessory muscles. GI: Full, soft, nontender, nondistended with normal bowel sounds. UROGENITAL: Palomino catheter is in place draining some urine. EXTREMITIES: Grossly normal looking atraumatic with no obvious edema or erythema. CARTOGRAPHIC TECHNICIAN: The patient is awake. Garbled speech. Could not tell me his name. DIAGNOSTIC DATA: CBC showed WBC count of 28.5, hemoglobin of 9.1, MCV of 86.7, platelets of 136. Chemistry showed sodium 141, potassium 3.2, chloride 108, CO2 of 21, BUN 49, creatinine 4.43, glucose 159, calcium 6.8, total bilirubin 1.9. AST 50, ALT 38, alkaline phosphatase 136, total protein 5.9, albumin 2.3. Vitamin D is 7.2. CT scan of the abdomen and pelvis performed yesterday showed small bilateral pleural effusion and moderate to prominent cardiomegaly suspicious for mild CHF. No renal or ureteral calculus was noted. ASSESSMENT: 1. Acute kidney injury: Creatinine continued to trend up. 2. Aggressive diuretic therapy. Acute tubular necrosis is a concern or at least seems most likely at this point. The rate of creatinine is increased making it possible that a plateau is likely today or tomorrow. The patient had rhabdomyolysis as well as shock, both which could lead to acute tubular necrosis. Hemodynamic factor related to volume contraction and sepsis remain a consideration. 3. Possible chronic kidney disease given risk factors. 4. Metabolic acidosis: Due to shock, lactic acidosis, metformin use as well as normal saline therapy. The patient has been transitioned to bicarb containing fluid. 5. Hypokalemia. 6. Hypocalcemia. 7. Vitamin D deficiency. 8. Septic shock. 9. Presumed complicated urinary tract infection. 10. Acute mental status change. 11. Rhabdomyolysis. 12. New onset seizure disorder. PLAN: 1. We will give a dose of Lasix to improve urine output and avoid fluid overload. 2. We will also decrease IV fluid from 200 mL to 100. 3. We will replete serum potassium with potassium chloride. 4. We will start vitamin D and calcium supplementation. 5. We will monitor intake and output as well as electrolytes and replete as indicated. 6. We will monitor renal function test. 7. Other treatment as per primary attending and marine structural welder. Job ID: [id number]
--- NOTE | 2019-11-02 11:49 | PDOC.HOSPP ---
- Subjective Encounter Date: 11/02/19 Subjective: NEUROLOGY PROGRESS NOTE No documented seizures overnight. He continues to be lethargic and somnolent and does not follow commands. - Objective Vital Signs & Weight: Vital Signs (12 hours) Temp Pulse Ox 11/02/19 10:45 97 11/02/19 08:00 97.7 F 98 11/02/19 04:00 97.7 F 11/02/19 00:00 98.3 F Weight Weight 212 lb 11.937 oz Most Recent Monitor Data Heart Rate from ECG 104 NIBP 103/76 NIBP BP-Mean 85 Respiration from ECG 33 SpO2 98 I&O: 11/01/19 11/02/19 11/03/19 06:59 06:59 06:59 Intake Total 1287 6621.1 Output Total 155 651 950 Balance 1132 5970.1 -950 Result Diagrams: 11/02/19 04:15 11/02/19 04:15 Radiology Reviewed by me: Yes EKG Reviewed by me: Yes Hospitalist ROS - Review of Systems ROS unobtainable: due to mental status - Medication Medications: Active Medications Generic Name Dose Route Start Last Admin Trade Name Freq PRN Reason Stop Dose Admin Calcium/Vitamin D 1 tab 11/02/19 09:00 11/02/19 10:39 Caltrate 600 + Vit D PO Not Given DAILY OSCAR Famotidine 20 mg 10/31/19 21:00 11/01/19 20:30 Pepcid SLOW IVP 20 mg HS OSCAR Administration Heparin Sodium (Porcine) 5,000 units 10/31/19 21:00 11/02/19 08:57 Heparin SC 5,000 units TID OSCAR Administration Levetiracetam 500 mg/ Device 100 mls @ 200 mls/hr 10/31/19 21:00 11/02/19 08: 57 IVPB 100 mls BID OSCAR Administration Sodium Bicarbonate 50 meq/ 1,050 mls @ 100 mls/hr 11/02/19 06:06 11/02/19 09: 16 Sodium Chloride IV 1,050 mls INF OSCAR Administration Ceftriaxone Sodium 2 gm/ 100 mls @ 200 mls/hr 11/02/19 09:30 11/02/19 10:42 Sodium Chloride IVPB 100 mls Q24HR OSCAR Administration Sodium Chloride 10 ml 10/31/19 21:00 11/02/19 08:57 Flush - Normal Saline IVF 10 ml Q12HR OSCAR Administration - Exam General Appearance: ill appearing Eye: PERRL ENT: normocephalic atraumatic Neck: supple Heart: RRR Respiratory: CTAB Gastrointestinal: soft Extremities: no cyanosis Skin: normal turgor Neurological: cranial nerve grossly intact, normal sensation to touch, no weakness, no focal deficits Musculoskeletal: normal tone, no muscle wasting Psychiatric: not oriented, somnolent, lethargic Hosp A/P (1) Seizure Code(s): R56.9 - UNSPECIFIED CONVULSIONS Status: Acute (2) HIEN (acute kidney injury) Code(s): N17.9 - ACUTE KIDNEY FAILURE, UNSPECIFIED Status: Acute (3) Abnormal LFTs Code(s): R94.5 - ABNORMAL RESULTS OF LIVER FUNCTION STUDIES Status: Acute (4) Bacteremia Code(s): R78.81 - BACTEREMIA Status: Acute (5) Lactic acidosis Code(s): E87.2 - ACIDOSIS Status: Acute (6) Rhabdomyolysis Code(s): M62.82 - RHABDOMYOLYSIS Status: Acute (7) Septic shock Code(s): A41.9 - SEPSIS, UNSPECIFIED ORGANISM; R65.21 - SEVERE SEPSIS WITH SEPTIC SHOCK Status: Acute (8) UTI (urinary tract infection) Status: Acute - Plan PT/OT, speech therapy, DVT proph w/lovenox 53 year old male with new onset seizure. Most likely a provoked seizure due to toxic-metabolic or infectious etiology. Intracranial process cannot be completely ruled out. Recommend MRI Brain to rule ot acute intracranial process. Recommend EEG to rule out underlying seizure activity. Continue Keppra 500 mg IV Q12 for seizure prophylaxis till acute issues are resolved. Keppra can be tapered as outpatient in couple of months. Observe seizure precautions. Neurochecks every 4 hours. Continue medical management per primary team. Further recommendations depend on the results of the testing.
--- NOTE | 2019-11-02 13:33 | MRI ---
MRI BRAIN WITHOUT CONTRAST: Date: 11/02/2019 HISTORY: New onset seizure. Altered mental status. FINDINGS: Correlation made with CT scan of 10/31/2019. There is a 1.7 x 1.3 cm focal wedge-shaped area of restricted diffusion and T2 prolongation in the le ft cerebellar hemisphere with low signal on ADC maps, consistent with an acute infarction. No recent hemorrhage is seen. Multiple foci of T2 prolongation in the periventricular white matter consistent w ith chronic small vessel ischemic disease. No midline shift or abnormal extra-axial fluid collections are identified. There is mucosal disease in the paranasal sinuses. There is a linear area of hemosid carne in the right external capsule. IMPRESSION: Acute left cerebellar hemispheric infarction. POS: [facility]
--- NOTE | 2019-11-02 16:35 | EEG ---
Referring Physician: Remy KING EEG # [id number] TEST TYPE: EXTENDED CONTINUOUS VIDEO EEG REPORT: This EEG was performed using 24 channel [employer] video digital EEG machine with 24 disc electrodes. This was an extended 2 hour 7 minutes of inpatient video EEG recording. Digital analysis of the EEG was done for spike and seizure detection which revealed abnormalities. BACKGROUND: The posterior background was no observed. HYPERVENTILATION: Not performed. PHOTIC STIMULATION: No response seen with hyperventilation. SLEEP: No stage change is observed. EEG DIAGNOSIS: 1.) Occasional sharp wave seen originating from the left frontal and temporal regions. 2.) Generalized irregular theta activity, left greater than right. 3.) Absence of posterior background rhythm. CLINICAL INTERPRETATION: THIS EEG IS CONSISTENT WITH INTERICTAL EXPRESSION OF PARTIAL EPILEPSY. THE POTENTIAL EPILEPTOGENIC ACTIVITY IS SEEN IN THE LEFT FRONTAL AND TEMPORAL REGION IN THE SETTING OF FOCAL CEREBRAL DYSFUNCTION IN THE SAME REGION. THERE IS ALSO EVIDENCE OF MODERATE GENERALIZED NONSPECIFIC CEREBRAL DYSFUNCTION. Derrick Boat Leverman: MICHAEL Stereoplotter Operator: EEG.YOSHI FRIEND
--- NOTE | 2019-11-02 16:55 | PRG ---
DATE OF SERVICE: 11/02/2019 SUBJECTIVE: The patient has been transferred to [facility]. He is much more alert, but he has quite severe expressive aphasia and only says yes. He probably has some element of receptive aphasia too because he does not follow commands even simple ones. Does not appear in distress. OBJECTIVE: VITAL SIGNS: Temperature max 98.6, blood pressure 99/75, pulse 103, respiratory rate 19, O2 saturation 98% on room air. HEENT: Ocular movements conjugate. Poor dentition. LUNGS: Symmetric clear breath sounds. HEART: S1 and S2. Regular rate. ABDOMEN: Soft, not distended. EXTREMITIES: He is able to move extremities. : Palomino catheter in place. Left subclavian central line. LABORATORY DATA: White cell count 28,000, hemoglobin 9.1, platelets 136, with 10% bands, which has improved from admission. Bilirubin 1.9, AST 50, direct bilirubin 1.6, alkaline phosphatase 136. Brain MRI was done, which showed acute left cerebellar hemispheric infarction. Cultures with E coli and nonhemolytic strep and urine Klebsiella pneumoniae and 2 sets of blood cultures with a fairly broad susceptibility profile, some of the one from previous. IMAGING: Abdomen and pelvis also showed mild CHF. IV contrast was not given. No hydronephrosis. No renal or ureteral calculus. ASSESSMENT AND DISCUSSION: Cerebrovascular accident with now acute cerebellar involvement, significant neurological impairment, [facility] residential status, likely bladder outflow tract obstruction due to benign prostatic hypertrophy, urosepsis due to Klebsiella pneumoniae. The patient has been transitioned to Rocephin to complete the treatment course. Duration of therapy approximately 10 days, so he would have a probably another week to go to complete treatment. Transition to Bactrim would be problematic because of his renal function and his creatinine continues to go up. We will see if there is a reversal of the noticed decrease in GFR. Job ID: [id number]
--- NOTE | 2019-11-02 17:03 | PDOC.HOSPP ---
- Subjective Encounter Date: 11/02/19 Encounter Time: 11:20 Subjective: Pt seen for followup re: sepsis. Nonverbal, unable to complete ROS. Tracking. - Objective Vital Signs & Weight: Vital Signs (12 hours) Temp Pulse BP Pulse Ox 11/02/19 16:36 115 H 120/96 H 11/02/19 15:00 112 H 117/82 11/02/19 14:00 105 H 119/74 11/02/19 13:02 86 130/99 H 11/02/19 10:45 97 11/02/19 08:00 97.7 F 98 Weight Admit Weight 212 lb Weight 212 lb 11.937 oz Most Recent Monitor Data Heart Rate from ECG 113 NIBP 99/75 NIBP BP-Mean 83 Respiration from ECG 22 SpO2 95 I&O: 11/01/19 11/02/19 11/03/19 06:59 06:59 06:59 Intake Total 1287 6621.1 Output Total 130 158 4182 Balance 1132 5970.1 -1300 Result Diagrams: 11/02/19 04:15 11/02/19 04:15 Additional Labs: Labs and MARs reviewed by me EKG Reviewed by me: Yes (Tele: NSR) Hospitalist ROS - Review of Systems ROS unobtainable: due to mental status - Medication Medications: Active Medications Generic Name Dose Route Start Last Admin Trade Name Freq PRN Reason Stop Dose Admin Calcium/Vitamin D 1 tab 11/02/19 09:00 11/02/19 10:39 Caltrate 600 + Vit D PO Not Given DAILY OSCAR Famotidine 20 mg 10/31/19 21:00 11/01/19 20:30 Pepcid SLOW IVP 20 mg HS OSCAR Administration Heparin Sodium (Porcine) 5,000 units 10/31/19 21:00 11/02/19 14:27 Heparin SC 5,000 units TID OSCAR Administration Levetiracetam 500 mg/ Device 100 mls @ 200 mls/hr 10/31/19 21:00 11/02/19 08: 57 IVPB 100 mls BID OSCAR Administration Sodium Bicarbonate 50 meq/ 1,050 mls @ 100 mls/hr 11/02/19 06:06 11/02/19 15: 25 Sodium Chloride IV 1,050 mls INF OSCAR Administration Ceftriaxone Sodium 2 gm/ 100 mls @ 200 mls/hr 11/02/19 09:30 11/02/19 10:42 Sodium Chloride IVPB 100 mls Q24HR OSCAR Administration Sodium Chloride 10 ml 10/31/19 21:00 11/02/19 08:57 Flush - Normal Saline IVF 10 ml Q12HR OSCAR Administration - Exam General Appearance: awake alert Eye: anicteric sclera ENT: moist mucosa Neck: supple Heart: RRR Respiratory: CTAB Gastrointestinal: soft, normal bowel sounds Extremities: no cyanosis Psychiatric: normal affect Hosp A/P (1) Septic shock Code(s): A41.9 - SEPSIS, UNSPECIFIED ORGANISM; R65.21 - SEVERE SEPSIS WITH SEPTIC SHOCK Status: Acute (2) Bacteremia Code(s): R78.81 - BACTEREMIA Status: Acute (3) UTI (urinary tract infection) Status: Acute (4) Seizure Code(s): R56.9 - UNSPECIFIED CONVULSIONS Status: Acute (5) Abnormal LFTs Code(s): R94.5 - ABNORMAL RESULTS OF LIVER FUNCTION STUDIES Status: Acute (6) HIEN (acute kidney injury) Code(s): N17.9 - ACUTE KIDNEY FAILURE, UNSPECIFIED Status: Acute (7) Rhabdomyolysis Code(s): M62.82 - RHABDOMYOLYSIS Status: Acute (8) Lactic acidosis Code(s): E87.2 - ACIDOSIS Status: Acute (9) Ischemic cerebrovascular accident (CVA) Code(s): I63.9 - CEREBRAL INFARCTION, UNSPECIFIED Status: Acute - Plan Pt switched to ceftriaxone IV. Klebsiella in blood, E. coli in urine. CK improving. Creatinine worse today. Start aspirin for acute ischemic cerebellar CVA. Continue IV fluids. COVID-19 negative. PCCM/Nephrology/Neurology/ID following.
[2019-11-02] MEDS ORDERED: Aspirin 325 mg Enteric Coated Tablet PO SCH (17:15)
[2019-11-02] MEDS: Famotidine/PF 20 mg/2ml Vial SLOW IVP SCH (21:07)
[2019-11-03] MEDS: Sodium Bicarbonate 50 MEQ in Sodium Chloride 0.45% 1,000 ML IV SCH ×2 (01:36→21:19)
[2019-11-03 04:41] LABS: ALT (SGPT) 30 U/L (8-55); AST (SGOT) 33 U/L (5-34); Albumin 2.3 g/dL (3.5-5.0); Alkaline Phosphatase 163 U/L (40-110); Anion Gap 22 mmol/L (10-20); BUN (Urea Nitrogen) 54 mg/dL (8.4-25.7); Bilirubin, Total 1.2 mg/dL (0.2-1.2); CK (CPK) 683 U/L (30-200); Calc. Creatinine Clearance 23 mL/min (70-130); Calcium 7.2 mg/dL (7.8-10.44); Carbon Dioxide 18 mmol/L (22-29); Chloride 106 mmol/L (98-107); Estimated GFR-MDRD 14; Glucose 191 mg/dL (70-105); Potassium 3.5 mmol/L (3.5-5.1); Protein, Total 5.9 g/dL (6.0-8.3); Sodium 142 mmol/L (136-145)
[2019-11-03 04:51] LABS: Band 22 % (5-11); Hemoglobin 9.7 g/dL (14.0-18.0); Lymphocytes 8 % (21-51); MDiff Complete? YES; Mean Corpuscular HGB CONC 32.4 g/dL (32.0-36.0); Mean Corpuscular Hemoglobin 27.5 pg (27.0-31.0); Mean Corpuscular Volume 84.8 fL (78.0-98.0); Mean Platelet Volume 8.4 fL (7.4-10.4); Monocytes 2 % (0-10); Neutrophil 68 % (42-75); Platelet Count 139 thou/uL (130-400); Platelet Morphology Comment Appears Adequate; RBC Distribution Width 13.4 % (11.5-14.5); Red Blood Cell (RBC) Count 3.51 mill/uL (4.70-6.10); White Blood Cell (WBC) Count 20.1 thou/uL (4.8-10.8)
--- NOTE | 2019-11-03 08:06 | PRG ---
DATE OF SERVICE: 11/03/2019 SUBJECTIVE: SUBJECTIVE: The patient is awake. He grunts, did not answer questions with a word. OBJECTIVE: VITAL SIGNS: On exam, temperature is 98.2, pulse 104, and blood pressure 108/68. 24-hour intake 1432, output 3650. HEENT: Unremarkable. NECK: No adenopathy or JVD. LUNGS: Clear anteriorly. CARDIAC: S1 and S2. Regular. ABDOMEN: Soft. EXTREMITIES: No edema. LABORATORY DATA: Sodium 142, potassium 3.5, chloride 106, CO2 of 18, BUN 54, creatinine 5.1, and glucose 191. CPK is down to 683. White blood cell count 20, hematocrit 29.8, and platelet count 139. ASSESSMENT: 1. Rhabdomyolysis. 2. Urinary tract infection. 3. Status post seizure episode. 4. Acute renal dysfunction secondary to rhabdomyolysis. PLAN: Continue current supportive care with IV fluids, ceftriaxone. He is on a bicarbonate drip through Nephrology. Can be transferred to the floor if okay with other consultants involved. Job ID: [id number]
[2019-11-03] MEDS: Heparin 5,000 UNITS/ML VIAL SC SCH ×3 (09:04→20:09)
[2019-11-03] MEDS: Calcium Carbonate 600 MG + Vit D TAB PO SCH (09:05)
[2019-11-03] MEDS: Aspirin 325 mg Enteric Coated Tablet PO SCH (09:05)
[2019-11-03] MEDS: cefTRIAXone\\ROCEPHIN 2 GM in Sodium Chloride 0.9% 100 ML IVPB SCH (09:17)
--- NOTE | 2019-11-03 09:58 | PRG ---
DATE OF SERVICE: 11/03/2019 SERVICE: Nephrology. SUBJECTIVE: A 53-year-old male, seen in followup for HIEN. The patient with prior CVA, was admitted after he was found to have hypotension and new onset seizure. Mental status has improved, though the patient is still nonconversational. MRI showed new acute cerebellar infarction. OBJECTIVE: VITAL SIGNS: Temperature 98.2, pulse 104, respiratory rate 17, SpO2 of 96% on room air, blood pressure is 108/68. I and O in the last 24 hours showed total intake of 1432, which seems inconclusive as the patient is on at least 100 mL of IV fluids per hour. Total output is 3650. GENERAL: Comfortable male patient, in no obvious distress. Afebrile. Anicteric. Acyanotic. HEENT: Normocephalic, atraumatic. Oral mucosa is moist. CARDIOVASCULAR: Regular rhythm and rate, but tachycardic. RESPIRATORY: Fair air entry bilaterally with a few transmitted breath sounds. No crackle or rhonchi or use of accessory muscles appreciated. GI: Full, soft, nontender, and nondistended with normal bowel sounds. UROGENITAL: Palomino catheter is in place draining urine. EXTREMITIES: Grossly normal looking, atraumatic, with no obvious edema or erythema. 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 mumbles some words. Moves limbs with stimulation. DIAGNOSTIC DATA: CBC showed WBC count of 20.1, hemoglobin of 9.7, platelets of 139. Chemistry showed sodium 142, potassium 3.5, chloride 106, CO2 of 18, BUN 54, creatinine 5.16, glucose 191, calcium 7.2, total bilirubin 1.2, AST 33, ALT 30, alkaline phosphatase 163. CPK is 683. Total protein 5.9, albumin 2.3. ASSESSMENT: 1. Acute renal failure: Creatinine continued to trend upwards despite resolution of other components of shock. The patient is currently off pressors, but still getting IV fluids as he has remained n.p.o. Acute tubular necrosis seems more likely than prerenal acute kidney injury. 2. Hypokalemia: Repleted. 3. Metabolic acidosis: Due to acute kidney injury. 4. Septic shock: Improved. Currently off pressors. 5. Acute cerebrovascular accident. 6. Hypotension, improved and stable. 7. Acute mental status change related to acute cerebrovascular accident. 8. Rhabdomyolysis: CPK is down to 683 from above 2000. PLAN: 1. Continue maintenance IV fluid with bicarb containing fluid as the patient is still n.p.o. Monitor closely for fluid overload. Continue to monitor renal function for renal recovery. Electrolytes are acceptable at this point. There is no need for hemodialysis at this point. 2. Further treatment to follow depending on hospital course. Antimicrobial as per primary attending and charge account identification clerk. Job ID: [id number]
--- NOTE | 2019-11-03 12:55 | PDOC.HOSPP ---
- Subjective Encounter Date: 11/03/19 Subjective: NEUROLOGY PROGRESS NOTE Patient clinically improved and oriented to himself only. - Objective Vital Signs & Weight: Vital Signs (12 hours) Temp Pulse Ox 11/03/19 11:54 97.8 F 11/03/19 07:40 98.2 F 11/03/19 04:27 98.3 F 11/03/19 02:40 95 Weight Admit Weight 212 lb Weight 211 lb 1 oz Most Recent Monitor Data Heart Rate from ECG 103 NIBP 121/80 NIBP BP-Mean 93 Respiration from ECG 16 SpO2 95 I&O: 11/02/19 11/03/19 11/04/19 06:59 06:59 06:59 Intake Total 6621.1 1432 Output Total 651 3650 Balance 5970.1 -2218 Result Diagrams: 11/03/19 04:10 11/03/19 04:10 Radiology Reviewed by me: Yes EKG Reviewed by me: Yes Hospitalist ROS - Review of Systems ROS unobtainable: due to mental status Neurological: reports: confusion - Medication Medications: Active Medications Generic Name Dose Route Start Last Admin Trade Name Freq PRN Reason Stop Dose Admin Aspirin 325 mg 11/03/19 09:00 11/03/19 09:05 Ecotrin PO 325 mg DAILY OSCAR Administration Calcium/Vitamin D 1 tab 11/02/19 09:00 11/03/19 09:05 Caltrate 600 + Vit D PO 1 tab DAILY OSCAR Administration Famotidine 20 mg 10/31/19 21:00 11/02/19 21:07 Pepcid SLOW IVP 20 mg HS OSCAR Administration Heparin Sodium (Porcine) 5,000 units 10/31/19 21:00 11/03/19 09:04 Heparin SC 5,000 units TID OSCAR Administration Sodium Bicarbonate 50 meq/ 1,050 mls @ 100 mls/hr 11/02/19 06:06 11/03/19 01: 36 Sodium Chloride IV 1,050 mls INF OSCAR Administration Ceftriaxone Sodium 2 gm/ 100 mls @ 200 mls/hr 11/02/19 09:30 11/03/19 09:17 Sodium Chloride IVPB 100 mls Q24HR OSCAR Administration Sodium Chloride 10 ml 10/31/19 21:00 11/03/19 09:05 Flush - Normal Saline IVF 10 ml Q12HR OSCAR Administration - Exam General Appearance: awake alert Eye: PERRL ENT: normocephalic atraumatic Neck: supple Heart: RRR Respiratory: CTAB Gastrointestinal: soft Extremities: no cyanosis Skin: normal turgor Neurological: no new deficit Psychiatric: oriented to person Hosp A/P (1) Seizure Code(s): R56.9 - UNSPECIFIED CONVULSIONS Status: Acute (2) HIEN (acute kidney injury) Code(s): N17.9 - ACUTE KIDNEY FAILURE, UNSPECIFIED Status: Acute (3) Abnormal LFTs Code(s): R94.5 - ABNORMAL RESULTS OF LIVER FUNCTION STUDIES Status: Acute (4) Bacteremia Code(s): R78.81 - BACTEREMIA Status: Acute (5) Lactic acidosis Code(s): E87.2 - ACIDOSIS Status: Acute (6) Rhabdomyolysis Code(s): M62.82 - RHABDOMYOLYSIS Status: Acute (7) Septic shock Code(s): A41.9 - SEPSIS, UNSPECIFIED ORGANISM; R65.21 - SEVERE SEPSIS WITH SEPTIC SHOCK Status: Acute (8) UTI (urinary tract infection) Status: Acute - Plan 53 year old male with new onset seizure. Clinically alert today bu oriented to himself only. EEG reviewed which showed spikes emanating from the left frontotemporal region. No seizures captured but increased risk. Keppra dose increased to 750 mg IV q12 . Will repeat EEG today to see the response to medication. Ativan 2 mg IV for seizure greater then 2 minutes. Observe seizure precautions. MRI brain reviewed which showed acute left cerebellar infarction. Neurochecks every 2 hours. Recommend stat NCHCT if neurological decline. Telemetry, 2D echo and carotid dopplers. Recommend rectal aspirin. Permissive BP control. Check lipid profile, TSH and HB A1C PT/OT/Speech DVT prophylaxis. Continue medical management per primary team.
--- NOTE | 2019-11-03 16:13 | EEG ---
Referring Physician: Hernandez EVANS EEG # [id number] TEST TYPE: EXTENDED CONTINUOUS VIDEO EEG RECORDING REPORT: This EEG was performed using 24 channel needmade video digital EEG machine with 24 disc electrodes. This was an extended 2 hour 10 minutes of inpatient video EEG recording. Digital analysis of the EEG was done for spike and seizure detection which revealed no abnormalities. BACKGROUND: There is a nonsustained posterior background rhythm of 7-8 hertz. Minimal reactivity seen with eye opening and eye closure. HYPERVENTILATION: Not performed PHOTIC STIMULATION: No significant response recorded with photic stimulation. SLEEP: Drowsiness and sleep are observed. EEG DIAGNOSIS: 1.) Intermittent irregular theta activity seen throughout the recording. 2.) Nonsustained slow posterior background rhythm. CLINICAL INTERPRETATION: THIS EEG IS CONSISTENT WITH MODERATE GENERALIZED NONSPECIFIC CEREBRAL DYSFUNCTION. NO ICTAL OR INTERICTAL EPILEPTIFORM ABNORMALITIES SEEN DURING THE RECORDING. THERE IS INTERVAL IMPROVEMENT SINCE THE PRIOR STUDY. Ambulatory Services Representative: MICHAEL Desizing Machine Back Tender: [email or web address] FRIEND
--- NOTE | 2019-11-03 18:06 | PRG ---
DATE OF SERVICE: 11/03/2019 SUBJECTIVE: Mr. Lau is in the IMCU, keeps his eyes open, but does not interact with the examiner, does not follow commands. OBJECTIVE: VITAL SIGNS: His temperature is normal, blood pressure 120/90, pulse 106, respiratory rate anywhere from 14 to 30, O2 saturations are 100. NEUROLOGIC: He has no nystagmus. LUNGS: Symmetric air entry. Actually, the right-sided breath sounds are not as prominent as the ones on the left side. HEART: S1 and S2, regular. ABDOMEN: Soft, not distended or tender. Moves extremities but does not follow commands. ASSESSMENT AND DISCUSSION: Cerebrovascular accident with cerebellar involvement , neurological impairment, [facility] residential state, bladder outflow tract obstruction with Klebsiella pneumoniae bacteremia, on Rocephin. Total duration of therapy another 6 days to complete his treatment course. Job ID: [id number] MTDD
[2019-11-03] MEDS: Famotidine/PF 20 mg/2ml Vial SLOW IVP SCH (20:09)
[2019-11-04 04:53] LABS: Band 7 % (5-11); Eosinophils 1 % (0-10); Hemoglobin 10.9 g/dL (14.0-18.0); Hypochromia SLIGHT = 6-15 cells (100X) (0-5/hpf); Lymphocytes 4 % (21-51); MDiff Complete? YES; Mean Corpuscular HGB CONC 33.8 g/dL (32.0-36.0); Mean Corpuscular Hemoglobin 28.5 pg (27.0-31.0); Mean Corpuscular Volume 84.4 fL (78.0-98.0); Mean Platelet Volume 8.4 fL (7.4-10.4); Monocytes 1 % (0-10); Neutrophil 87 % (42-75); Platelet Count 143 thou/uL (130-400); Platelet Morphology Comment Appears Adequate; RBC Distribution Width 13.6 % (11.5-14.5); Red Blood Cell (RBC) Count 3.83 mill/uL (4.70-6.10); White Blood Cell (WBC) Count 10.8 thou/uL (4.8-10.8)
[2019-11-04 05:02] LABS: Anion Gap 14 mmol/L (10-20); BUN (Urea Nitrogen) 57 mg/dL (8.4-25.7); CK (CPK) 262 U/L (30-200); Calc. Creatinine Clearance 23 mL/min (70-130); Calcium 7.5 mg/dL (7.8-10.44); Carbon Dioxide 26 mmol/L (22-29); Chloride 104 mmol/L (98-107); Estimated GFR-MDRD 14; Glucose 265 mg/dL (70-105); Potassium 3.5 mmol/L (3.5-5.1); Sodium 140 mmol/L (136-145)
[2019-11-04 05:03] LABS: ALT (SGPT) 26 U/L (8-55); AST (SGOT) 22 U/L (5-34); Albumin 2.3 g/dL (3.5-5.0); Alkaline Phosphatase 172 U/L (40-110); Bilirubin, Direct 0.5 mg/dL (0.1-0.3); Bilirubin, Total 0.6 mg/dL (0.2-1.2); Protein, Total 6.1 g/dL (6.0-8.3)
--- NOTE | 2019-11-04 08:46 | PRG ---
DATE OF SERVICE: 11/04/2019 SUBJECTIVE: The patient is doing well. He is starting to verbalize very well. OBJECTIVE: VITAL SIGNS: On exam, temperature is 98.7, pulse 101, blood pressure 140/99, and O2 saturation 100%. HEENT: Unremarkable. NECK: No adenopathy or JVD. CHEST: Clear anteriorly. CARDIAC: S1 and S2. Regular. ABDOMEN: Soft. EXTREMITIES: No edema. LABORATORY DATA: White blood cell count 10, hematocrit 32, and platelet count 143. Sodium 140, potassium 3.5, chloride 104, CO2 of 26, BUN 57, creatinine 5.1, and glucose 265. ASSESSMENT: 1. Improved rhabdomyolysis. 2. Urinary tract infection. 3. Status post seizure. 4. Acute renal failure secondary to rhabdomyolysis. PLAN: The patient is currently on ceftriaxone. IV fluids are being managed by Nephrology. He can be transferred to the stroke floor. Job ID: [id number]
[2019-11-04] MEDS ORDERED: Ergocalciferol 1.25 MG(50,000 UNITS) CAP PO SCH (09:00)
[2019-11-04] MEDS: Calcium Carbonate 600 MG + Vit D TAB PO SCH (09:48)
[2019-11-04] MEDS: Aspirin 325 mg Enteric Coated Tablet PO SCH (09:48)
[2019-11-04] MEDS: Heparin 5,000 UNITS/ML VIAL SC SCH ×3 (09:49→21:41)
[2019-11-04] MEDS: Sodium Bicarbonate 50 MEQ in Sodium Chloride 0.45% 1,000 ML IV SCH (09:50)
[2019-11-04] MEDS: cefTRIAXone\\ROCEPHIN 2 GM in Sodium Chloride 0.9% 100 ML IVPB SCH (09:52)
[2019-11-04] MEDS ORDERED: Carvedilol 6.25 MG TAB PO SCH (10:15)
[2019-11-04] MEDS: Sodium Chloride 0.9% 1,000 ML IV SCH (13:18)
[2019-11-04] MEDS ORDERED: Sodium Bicarbonate 50 MEQ in Sodium Chloride 0.45% 1,000 ML IV SCH (14:43)
--- NOTE | 2019-11-04 14:43 | PDOC.HOSPP ---
- Subjective Encounter Date: 11/04/19 Subjective: NEUROLOGY PROGRESS NOTE Patient doing much better after increased dose of Keppra - Objective Vital Signs & Weight: Vital Signs (12 hours) Temp Pulse BP Pulse Ox Pulse Ox 11/04/19 11:22 98.4 F 11/04/19 10:56 103 H 137/108 H 98 11/04/19 08:00 100 11/04/19 07:28 97.9 F 11/04/19 03:56 98.7 F Weight Admit Weight 169 lb 15.622 oz Weight 211 lb 2 oz Most Recent Monitor Data Heart Rate from ECG 102 NIBP 137/108 NIBP BP-Mean 117 Respiration from ECG 20 SpO2 99 I&O: 11/03/19 11/04/19 11/05/19 06:59 06:59 06:59 Intake Total 1432 2930 Output Total 3650 2200 Balance -2218 730 Result Diagrams: 11/04/19 04:28 11/04/19 04:28 Radiology Reviewed by me: Yes EKG Reviewed by me: Yes Hospitalist ROS - Review of Systems Constitutional: denies: fever, chills, sweats, weakness, malaise, other Eyes: denies: pain, vision change, conjunctivae inflammation, eyelid inflammation, redness, other ENT: denies: ear pain, ear discharge, nose pain, nose discharge, nose congestion , mouth pain, mouth swelling, throat pain, throat swelling, other Respiratory: denies: cough, dry, shortness of breath, hemoptysis, SOB with excertion, pleuritic pain, sputum, wheezing, other Cardiovascular: denies: chest pain, palpitations, orthopnea, paroxysmal noc. dyspnea, edema, light headedness, other Gastrointestinal: denies: nausea, vomiting, abdominal pain, diarrhea, constipation, melena, hematochezia, other Genitourinary: denies: dysuria, frequency, incontinence, hematuria, retention, other Musculoskeletal: denies: neck pain, shoulder pain, arm pain, back pain, hand pain, leg pain, foot pain, other Neurological: reports: confusion - Medication Medications: Active Medications Generic Name Dose Route Start Last Admin Trade Name Freq PRN Reason Stop Dose Admin Aspirin 325 mg 11/03/19 09:00 11/04/19 09:48 Ecotrin PO 325 mg DAILY OSCAR Administration Calcium/Vitamin D 1 tab 11/02/19 09:00 11/04/19 09:48 Caltrate 600 + Vit D PO 1 tab DAILY OSCAR Administration Ergocalciferol 1.25 mg 11/04/19 09:00 11/04/19 09:48 Drisdol PO 1.25 mg Q7DAYS OSCAR Administration Famotidine 20 mg 10/31/19 21:00 11/03/19 20:09 Pepcid SLOW IVP 20 mg HS OSCAR Administration Heparin Sodium (Porcine) 5,000 units 10/31/19 21:00 11/04/19 14:30 Heparin SC 5,000 units TID OSCAR Administration Sodium Bicarbonate 50 meq/ 1,050 mls @ 100 mls/hr 11/02/19 06:06 11/04/19 09: 50 Sodium Chloride IV 1,050 mls INF OSCAR Administration Ceftriaxone Sodium 2 gm/ 100 mls @ 200 mls/hr 11/02/19 09:30 11/04/19 09:52 Sodium Chloride IVPB 100 mls Q24HR OSCAR Administration Levetiracetam 750 mg/ Sodium 107.5 mls @ 215 mls/hr 11/03/19 21:00 11/04/19 09:53 Chloride IVPB 107.5 mls Q12HR OSCAR Administration Sodium Chloride 10 ml 10/31/19 21:00 11/04/19 09:50 Flush - Normal Saline IVF 10 ml Q12HR OSCAR Administration - Exam General Appearance: awake alert Eye: PERRL ENT: normocephalic atraumatic Neck: supple Heart: RRR Respiratory: CTAB Gastrointestinal: soft Extremities: no cyanosis Skin: normal turgor Neurological: cranial nerve grossly intact, normal sensation to touch, no weakness, no focal deficits, no new deficit Musculoskeletal: normal tone, normal strength, no muscle wasting Psychiatric: normal affect, normal behavior, oriented to person, oriented to place Hosp A/P (1) Seizure Code(s): R56.9 - UNSPECIFIED CONVULSIONS Status: Acute (2) HIEN (acute kidney injury) Code(s): N17.9 - ACUTE KIDNEY FAILURE, UNSPECIFIED Status: Acute (3) Abnormal LFTs Code(s): R94.5 - ABNORMAL RESULTS OF LIVER FUNCTION STUDIES Status: Acute (4) Bacteremia Code(s): R78.81 - BACTEREMIA Status: Acute (5) Lactic acidosis Code(s): E87.2 - ACIDOSIS Status: Acute (6) Rhabdomyolysis Code(s): M62.82 - RHABDOMYOLYSIS Status: Acute (7) Septic shock Code(s): A41.9 - SEPSIS, UNSPECIFIED ORGANISM; R65.21 - SEVERE SEPSIS WITH SEPTIC SHOCK Status: Acute (8) UTI (urinary tract infection) Status: Acute - Plan 53 year old male with new onset seizure. Clinically alert and oriented x 2. Follows commands appropriately. Initial EEG reviewed which showed spikes emanating from the left frontotemporal region. Keppra dose increased to 750 mg IV q12 . Repeat EEG improved Ativan 2 mg IV for seizure greater then 2 minutes. Observe seizure precautions. MRI brain reviewed which showed acute left cerebellar infarction. Recommend 2 D echo, telemetry and carotid dopplers Neurochecks every 2 hours. Recommend stat NCHCT if neurological decline. Continue aspirin and recommend high intensity statin for secondary stroke prevention. PT/OT/Speech DVT prophylaxis. Continue medical management per primary team.
--- NOTE | 2019-11-04 15:06 | PDOC.HOSPP ---
- Subjective Encounter Date: 11/04/19 Encounter Time: 15:03 Subjective: Pt seen for followup re: sepsis. Speaking today. - Objective Vital Signs & Weight: Vital Signs (12 hours) Temp Pulse BP Pulse Ox Pulse Ox 11/04/19 11:22 98.4 F 11/04/19 10:56 103 H 137/108 H 98 11/04/19 08:00 100 11/04/19 07:28 97.9 F 11/04/19 03:56 98.7 F Weight Admit Weight 169 lb 15.622 oz Weight 211 lb 2 oz Most Recent Monitor Data Heart Rate from ECG 97 NIBP 137/108 NIBP BP-Mean 117 Respiration from ECG 14 SpO2 99 I&O: 11/03/19 11/04/19 11/05/19 06:59 06:59 06:59 Intake Total 1432 2930 Output Total 3650 2200 Balance -2218 730 Result Diagrams: 11/04/19 04:28 11/04/19 04:28 Additional Labs: Labs and MARs reviewed by pa Hospitalist ROS - Medication Medications: Active Medications Generic Name Dose Route Start Last Admin Trade Name Juvenalq PRN Reason Stop Dose Admin Aspirin 325 mg 11/03/19 09:00 11/04/19 09:48 Ecotrin PO 325 mg DAILY OSCAR Administration Calcium/Vitamin D 1 tab 11/02/19 09:00 11/04/19 09:48 Caltrate 600 + Vit D PO 1 tab DAILY OSCAR Administration Ergocalciferol 1.25 mg 11/04/19 09:00 11/04/19 09:48 Drisdol PO 1.25 mg Q7DAYS OSCAR Administration Famotidine 20 mg 10/31/19 21:00 11/03/19 20:09 Pepcid SLOW IVP 20 mg HS OSCAR Administration Heparin Sodium (Porcine) 5,000 units 10/31/19 21:00 11/04/19 14:30 Heparin SC 5,000 units TID OSCAR Administration Ceftriaxone Sodium 2 gm/ 100 mls @ 200 mls/hr 11/02/19 09:30 11/04/19 09:52 Sodium Chloride IVPB 100 mls Q24HR OSCAR Administration Levetiracetam 750 mg/ Sodium 107.5 mls @ 215 mls/hr 11/03/19 21:00 11/04/19 09:53 Chloride IVPB 107.5 mls Q12HR OSCAR Administration Sodium Chloride 10 ml 10/31/19 21:00 11/04/19 09:50 Flush - Normal Saline IVF 10 ml Q12HR OSCAR Administration Hosp A/P (1) Septic shock Code(s): A41.9 - SEPSIS, UNSPECIFIED ORGANISM; R65.21 - SEVERE SEPSIS WITH SEPTIC SHOCK Status: Acute (2) Bacteremia Code(s): R78.81 - BACTEREMIA Status: Acute (3) UTI (urinary tract infection) Status: Acute (4) Seizure Code(s): R56.9 - UNSPECIFIED CONVULSIONS Status: Acute (5) Abnormal LFTs Code(s): R94.5 - ABNORMAL RESULTS OF LIVER FUNCTION STUDIES Status: Acute (6) HIEN (acute kidney injury) Code(s): N17.9 - ACUTE KIDNEY FAILURE, UNSPECIFIED Status: Acute (7) Rhabdomyolysis Code(s): M62.82 - RHABDOMYOLYSIS Status: Acute (8) Lactic acidosis Code(s): E87.2 - ACIDOSIS Status: Acute (9) Ischemic cerebrovascular accident (CVA) Code(s): I63.9 - CEREBRAL INFARCTION, UNSPECIFIED Status: Acute - Plan Pt switched to ceftriaxone IV. Klebsiella in blood, E. coli in urine. CK improving. Creatinine worse today. Start aspirin for acute ischemic cerebellar CVA. Continue IV fluids. COVID-19 negative. PCCM/Nephrology/Neurology/ID following.
--- NOTE | 2019-11-04 15:35 | PRG ---
DATE OF SERVICE: 11/04/2019 SERVICE: Nephrology. SUBJECTIVE: A 53-year-old male patient, custodial resident with hypertension, prior CVA, and others, who was admitted after he was found hypotensive and with seizures. Nephrology is following the patient for acute renal failure and electrolyte derangements. The patient has clinically improved. He is conversational now today and obeying commands. He reportedly said himself. OBJECTIVE: VITAL SIGNS: Temperature 98.4, pulse 111, respiratory rate 16, SpO2 of 97% on room air, blood pressure is 137/108. I and O in the last 24 hours showed total intake of 2930 with total output of 2220. GENERAL: Middle-age male, in no obvious distress. Afebrile. Anicteric. Acyanotic. HEENT: Normocephalic, atraumatic. Oral mucosa is moist. CARDIOVASCULAR: Regular rhythm and rate, but tachycardic. RESPIRATORY: Fair air entry bilaterally with some transmitted breath sounds, but no obvious crackle or rhonchi or use of accessory muscles. GI: Full, soft, nontender, nondistended with normal bowel sounds. UROGENITAL: Palomino catheter is in place draining some urine. EXTREMITIES: Grossly normal looking, atraumatic with no edema or erythema. LIBRARY ASSISTANT: Conscious, alert, oriented x3. Obeying commands. Moves all extremities. Mild weakness however is noted on the left side. DIAGNOSTIC DATA: CBC showed WBC count of 10.8, hemoglobin of 10.9, platelet of 143. Chemistry showed sodium 140, potassium 3.5, chloride 104, CO2 of 26, BUN 57, creatinine 5.15, glucose 265, calcium 7.5, total bilirubin 0.6, AST 22, ALT 26, alkaline phosphatase 172. CPK is 262, total protein is 6.1, albumin is 2.3. ASSESSMENT: 1. Acute renal failure: Most likely acute tubular necrosis from septic shock. Contribution from rhabdomyolysis cannot be ruled out. The patient is still making some urine and is not fluid overloaded. 2. Possibility of these being hemodynamic factors without acute tubular necrosis is also considered, but creatinine continued to trend up despite stabilization of normal hemodynamics, which negates the possibility of prerenal etiology without acute tubular necrosis. 3. Hypertension. 4. Persistent tachycardia: This is presumed to be due to rebound from discontinuation of beta-yony. The patient was on beta-yony prior to presentation. 5. Septic shock: Resolved. 6. Complicated urinary tract infection with Escherichia coli and Klebsiella urinary tract infection and bacteremia respectively. 7. Vitamin D deficiency, on supplementation. 8. Metabolic acidosis: Due to acute renal failure. PLAN: 1. We will decrease IV fluid therapy given markedly improved CPK and improved hemodynamic. We will also restart carvedilol with a view to increasing dose if blood pressure remained uncontrolled. We will also add amlodipine if indicated. 2. We will continue to monitor intake and output as well as renal function and electrolytes. 3. Alkali therapy to continue. 4. Further treatment to follow depending on hospital course. Job ID: [id number]
--- NOTE | 2019-11-04 17:08 | ULT ---
Carotid duplex sonogram HISTORY: Vascular disease. TIA. FINDINGS: Right: Mild intimal thickening. Color and spectral Doppler evaluation, peak systolic velocity of 39 c m/s, and IC to CC ratio 0.8 suggest no hemodynamically significant stenosis within the extracranial right ICA. Antegrade flow within the vertebral artery. Left: Mild intimal thickening. Color and spectral Doppler evaluation, peak systolic velocity of 37 cm /s, and IC to CC ratio of 0.6 suggest no hemodynamically significant stenosis within the extracranial left ICA. Antegrade flow within the vertebral artery. IMPRESSION : Normal exam. No evidence of significant stenosis.
[2019-11-04] MEDS ORDERED: HumaLOG 300 UNITS/3 ML VIAL SC PRN (21:05)
[2019-11-04] MEDS ORDERED: Dextrose 5% in Water 1,000 ML IV PRN (21:05)
[2019-11-04] MEDS ORDERED: Dextrose 50% Abboject 50 ML SYRINGE SLOW IVP PRN (21:05)
[2019-11-04] MEDS: Carvedilol 6.25 MG TAB PO SCH (21:41)
[2019-11-04] MEDS: Famotidine/PF 20 mg/2ml Vial SLOW IVP SCH (21:41)
[2019-11-05 06:19] LABS: Anion Gap 13 mmol/L (10-20); BUN (Urea Nitrogen) 54 mg/dL (8.4-25.7); Calc. Creatinine Clearance 26 mL/min (70-130); Calcium 7.7 mg/dL (7.8-10.44); Carbon Dioxide 27 mmol/L (22-29); Chloride 103 mmol/L (98-107); Estimated GFR-MDRD 17; Glucose 285 mg/dL (70-105); Potassium 3.5 mmol/L (3.5-5.1); Sodium 139 mmol/L (136-145)
[2019-11-05 06:23] LABS: Band 5 % (5-11); Eosinophils 8 % (0-10); Hemoglobin 11.1 g/dL (14.0-18.0); Lymphocytes 19 % (21-51); MDiff Complete? YES; Mean Corpuscular HGB CONC 33.8 g/dL (32.0-36.0); Mean Corpuscular Hemoglobin 28.4 pg (27.0-31.0); Mean Corpuscular Volume 84.1 fL (78.0-98.0); Mean Platelet Volume 8.5 fL (7.4-10.4); Monocytes 9 % (0-10); Neutrophil 58 % (42-75); Platelet Count 137 thou/uL (130-400); Platelet Morphology Comment Appears Adequate; RBC Distribution Width 13.6 % (11.5-14.5); Red Blood Cell (RBC) Count 3.89 mill/uL (4.70-6.10); White Blood Cell (WBC) Count 6.4 thou/uL (4.8-10.8)
[2019-11-05] MEDS: HumaLOG 300 UNITS/3 ML VIAL SC PRN ×3 (06:36→17:50)
[2019-11-05 06:44] VITALS: BMI 26.1
[2019-11-05] MEDS: Heparin 5,000 UNITS/ML VIAL SC SCH ×3 (08:50→23:09)
[2019-11-05] MEDS: Calcium Carbonate 600 MG + Vit D TAB PO SCH (08:59)
[2019-11-05] MEDS: Carvedilol 6.25 MG TAB PO SCH ×2 (08:59→23:09)
[2019-11-05] MEDS: Aspirin 325 mg Enteric Coated Tablet PO SCH (08:59)
[2019-11-05] MEDS: cefTRIAXone\\ROCEPHIN 2 GM in Sodium Chloride 0.9% 100 ML IVPB SCH (09:26)
--- NOTE | 2019-11-05 11:13 | PRG ---
DATE OF SERVICE: 11/05/2019 SERVICE: Nephrology. SUBJECTIVE: A 53-year-old male seen in followup for acute renal failure. The patient was admitted due to septic shock and seizure. Mental status has improved and the patient was conversational yesterday. However, today the patient is sleeping and was difficult to arouse and was not as conversational when awake. OBJECTIVE: VITAL SIGNS: Temperature 98.0, pulse 88, respiratory rate 14, SpO2 of 100% on room air, blood pressure is 121/83. I and O in the last 24 hours showed total intake of 340, which seems inconclusive. However, total output was 4000. GENERAL: Drowsy male patient in no obvious distress. Afebrile. Anicteric. Acyanotic. HEENT: Normocephalic, atraumatic. Oral mucosa is moist. CARDIOVASCULAR: Regular rhythm and rate with normal heart sounds 1 and 2. RESPIRATORY: Fair air entry bilaterally with no obvious crackle, rhonchi, or use of accessory muscles. GASTROINTESTINAL: Soft, nontender, nondistended with normal bowel sounds. UROGENITAL: Palomino catheter is in place draining urine. EXTREMITIES: Grossly normal looking, atraumatic with no edema or erythema. CENTRAL NERVOUS SYSTEM: The patient is drowsy. He was sleeping and was hard to awake. When awake, he is not as alert as he was yesterday. He, however, was able to raise his arm up and move lower extremities as well. However, he was unable to tell me his name. He seems to be slow and groggy from being sleepy. DIAGNOSTIC DATA: CBC showed WBC count of 6.4, hemoglobin of 11.1, platelet of 137. Chemistry showed sodium 139, potassium 3.5, chloride 103, CO2 of 27, BUN 54, creatinine 4.50, glucose 285, calcium 7.7. Of note, creatinine yesterday was 5.15. ASSESSMENT: 1. Acute renal failure: This is due to acute tubular necrosis related to septic shock. Creatinine has reached a peak of 5.16 and is beginning to trend downward. 2. Hypokalemia: Repleted. 3. Septic shock: Resolved. 4. Hypertension: Improved with recommencement of carvedilol. 5. Complicated urinary tract infection: Treatment as per Infectious Disease. 6. Mental status change: We will monitor. 7. Seizure disorder: On antiepileptic. PLAN: 1. Neuro checks to ascertain no new onset change in mental status. 2. We will monitor intake and output as the patient has been in negative balance in the last 2 days to avoid dehydration. 3. We will also monitor electrolytes and replete as indicated. 4. We will also monitor renal function serially as there is evidence of renal recovery. 5. We will monitor blood pressure and restart amlodipine if blood pressure is not adequately controlled. 6. Diet as tolerated as well as liberal oral intake. 7. Other treatment as per primary attending. We will discontinue sodium bicarbonate infusion. 8. We will continue vitamin D supplementation due to vitamin D deficiency. Job ID: [id number]
--- NOTE | 2019-11-05 13:42 | PDOC.HOSPP ---
- Subjective Encounter Date: 11/05/19 Subjective: NEUROLOGY PROGRESS NOTE Patient doing better and oriented to person and place. - Objective Vital Signs & Weight: Vital Signs (12 hours) Temp Pulse Resp BP BP Pulse Ox 11/05/19 11:24 98.3 F 84 12 128/87 97 11/05/19 08:59 121/83 11/05/19 07:37 98.0 F 88 14 121/83 100 11/05/19 04:00 97.5 F L 96 18 139/95 H 92 L Weight Admit Weight 169 lb 15.622 oz Weight 203 lb 3.2 oz Most Recent Monitor Data Heart Rate from ECG 84 NIBP 140/103 NIBP BP-Mean 115 Respiration from ECG 13 SpO2 97 I&O: 11/04/19 11/05/19 11/06/19 06:59 06:59 06:59 Intake Total 2930 340 720 Output Total 2200 4000 Balance 730 -3050 720 Result Diagrams: 11/05/19 05:48 11/05/19 05:48 Additional Labs: Accuchecks 11/05/19 11/05/19 11/04/19 10:58 05:59 20:11 POC Glucose 250 H 318 H 295 H Radiology Reviewed by me: Yes EKG Reviewed by me: Yes Hospitalist ROS - Review of Systems Constitutional: denies: fever, chills, sweats, weakness, malaise, other Eyes: denies: pain, vision change, conjunctivae inflammation, eyelid inflammation, redness, other ENT: denies: ear pain, ear discharge, nose pain, nose discharge, nose congestion , mouth pain, mouth swelling, throat pain, throat swelling, other Respiratory: denies: cough, dry, shortness of breath, hemoptysis, SOB with excertion, pleuritic pain, sputum, wheezing, other Cardiovascular: denies: chest pain, palpitations, orthopnea, paroxysmal noc. dyspnea, edema, light headedness, other Gastrointestinal: denies: nausea, vomiting, abdominal pain, diarrhea, constipation, melena, hematochezia, other Genitourinary: denies: dysuria, frequency, incontinence, hematuria, retention, other Musculoskeletal: denies: neck pain, shoulder pain, arm pain, back pain, hand pain, leg pain, foot pain, other Neurological: reports: incoordination, change in speech, confusion. denies: weakness, numbness, seizures, other - Medication Medications: Active Medications Generic Name Dose Route Start Last Admin Trade Name Freq PRN Reason Stop Dose Admin Acetaminophen 650 mg 10/31/19 16:28 11/05/19 04:25 Tylenol PO 650 mg Q4H PRN Administration Headache/Fever/Mild Pain (1-3) Aspirin 325 mg 11/03/19 09:00 11/05/19 08:59 Ecotrin PO 325 mg DAILY OSCAR Administration Calcium/Vitamin D 1 tab 11/02/19 09:00 11/05/19 08:59 Caltrate 600 + Vit D PO 1 tab DAILY OSCAR Administration Carvedilol 12.5 mg 11/04/19 21:00 11/05/19 08:59 Coreg PO 12.5 mg BID OSCAR Administration Ergocalciferol 1.25 mg 11/04/19 09:00 11/04/19 09:48 Drisdol PO 1.25 mg Q7DAYS OSCAR Administration Heparin Sodium (Porcine) 5,000 units 10/31/19 21:00 11/05/19 08:50 Heparin SC 5,000 units TID OSCAR Administration Ceftriaxone Sodium 2 gm/ 100 mls @ 200 mls/hr 11/02/19 09:30 11/05/19 09:26 Sodium Chloride IVPB 100 mls Q24HR OSCAR Administration Sodium Bicarbonate 50 meq/ 1,050 mls @ 50 mls/hr 11/04/19 14:43 11/05/19 12: 14 Sodium Chloride IV 1,050 mls INF OSCAR Administration Insulin Human Lispro 0 units 11/04/19 21:05 11/05/19 12:18 Humalog SC 3 unit .MILD SLIDING SCALE PRN Administration Mild Correctional Scale Insulin Human Lispro 0 units 11/04/19 21:05 11/04/19 21:41 Humalog SC 3 unit .BEDTIME SLIDING SC PRN Administration Bedtime Correctional Scale Sodium Chloride 10 ml 10/31/19 21:00 11/05/19 08:49 Flush - Normal Saline IVF 10 ml Q12HR OSCAR Administration Sodium Chloride 10 ml 10/31/19 19:32 11/05/19 08:50 Flush - Normal Saline IVF 10 ml PRN PRN Administration Saline Flush - Exam General Appearance: awake alert Eye: PERRL ENT: normocephalic atraumatic Neck: supple Heart: RRR Respiratory: CTAB Gastrointestinal: soft Extremities: no cyanosis Skin: normal turgor Neurological: no new deficit, speech deficit Neurological - other findings: Moving all 4 extremities Psychiatric: oriented to person, oriented to place Hosp A/P (1) Seizure Code(s): R56.9 - UNSPECIFIED CONVULSIONS Status: Acute (2) HIEN (acute kidney injury) Code(s): N17.9 - ACUTE KIDNEY FAILURE, UNSPECIFIED Status: Acute (3) Abnormal LFTs Code(s): R94.5 - ABNORMAL RESULTS OF LIVER FUNCTION STUDIES Status: Acute (4) Bacteremia Code(s): R78.81 - BACTEREMIA Status: Acute (5) Lactic acidosis Code(s): E87.2 - ACIDOSIS Status: Acute (6) Rhabdomyolysis Code(s): M62.82 - RHABDOMYOLYSIS Status: Acute (7) Septic shock Code(s): A41.9 - SEPSIS, UNSPECIFIED ORGANISM; R65.21 - SEVERE SEPSIS WITH SEPTIC SHOCK Status: Acute (8) UTI (urinary tract infection) Status: Acute - Plan 53 year old male with new onset seizure and acute left cerebellar infarction. Clinically alert and oriented x 2. Follows commands appropriately. Carotid dopplers did not reveal significant stenosis. Initial EEG reviewed which showed spikes emanating from the left frontotemporal region. Keppra dose increased to 750 mg IV q12 . Repeat EEG improved Ativan 2 mg IV for seizure greater then 2 minutes. Observe seizure precautions. MRI brain reviewed which showed acute left cerebellar infarction. Recommend 2 D echo Telemetry Neurochecks every 2 hours. Recommend stat NCHCT if neurological decline. Continue aspirin and recommend high intensity statin for secondary stroke prevention. PT/OT/Speech DVT prophylaxis. Continue medical management per primary team.
--- NOTE | 2019-11-05 14:16 | PDOC.HOSPP ---
- Subjective Encounter Date: 11/05/19 Encounter Time: 07:20 Subjective: Pt seen for followup re: bacteremia. States he feels well. - Objective Vital Signs & Weight: Vital Signs (12 hours) Temp Pulse Resp BP BP Pulse Ox 11/05/19 11:24 98.3 F 84 12 128/87 97 11/05/19 08:59 121/83 11/05/19 07:37 98.0 F 88 14 121/83 100 11/05/19 04:00 97.5 F L 96 18 139/95 H 92 L Weight Admit Weight 169 lb 15.622 oz Weight 203 lb 3.2 oz Most Recent Monitor Data Heart Rate from ECG 84 NIBP 140/103 NIBP BP-Mean 115 Respiration from ECG 13 SpO2 97 I&O: 11/04/19 11/05/19 11/06/19 06:59 06:59 06:59 Intake Total 2930 340 720 Output Total 2200 4000 825 Balance 730 -3660 -105 Result Diagrams: 11/05/19 05:48 11/05/19 05:48 Additional Labs: Accuchecks 11/05/19 11/05/19 11/04/19 10:58 05:59 20:11 POC Glucose 250 H 318 H 295 H Labs and MARs reviewed by me Hospitalist ROS - Review of Systems Cardiovascular: denies: chest pain, palpitations, orthopnea, paroxysmal noc. dyspnea, edema, light headedness Gastrointestinal: denies: nausea, vomiting, abdominal pain, diarrhea, constipation, melena, hematochezia - Medication Medications: Active Medications Generic Name Dose Route Start Last Admin Trade Name Juvenalq PRN Reason Stop Dose Admin Acetaminophen 650 mg 10/31/19 16:28 11/05/19 04:25 Tylenol PO 650 mg Q4H PRN Administration Headache/Fever/Mild Pain (1-3) Aspirin 325 mg 11/03/19 09:00 11/05/19 08:59 Ecotrin PO 325 mg DAILY OSCAR Administration Calcium/Vitamin D 1 tab 11/02/19 09:00 11/05/19 08:59 Caltrate 600 + Vit D PO 1 tab DAILY OSCAR Administration Carvedilol 12.5 mg 11/04/19 21:00 11/05/19 08:59 Coreg PO 12.5 mg BID OSCAR Administration Ergocalciferol 1.25 mg 11/04/19 09:00 11/04/19 09:48 Drisdol PO 1.25 mg Q7DAYS OSCAR Administration Heparin Sodium (Porcine) 5,000 units 10/31/19 21:00 11/05/19 08:50 Heparin SC 5,000 units TID OSCAR Administration Ceftriaxone Sodium 2 gm/ 100 mls @ 200 mls/hr 11/02/19 09:30 11/05/19 09:26 Sodium Chloride IVPB 100 mls Q24HR OSCAR Administration Sodium Bicarbonate 50 meq/ 1,050 mls @ 50 mls/hr 11/04/19 14:43 11/05/19 12: 14 Sodium Chloride IV 1,050 mls INF OSCAR Administration Insulin Human Lispro 0 units 11/04/19 21:05 11/05/19 12:18 Humalog SC 3 unit .MILD SLIDING SCALE PRN Administration Mild Correctional Scale Insulin Human Lispro 0 units 11/04/19 21:05 11/04/19 21:41 Humalog SC 3 unit .BEDTIME SLIDING SC PRN Administration Bedtime Correctional Scale Sodium Chloride 10 ml 10/31/19 21:00 11/05/19 08:49 Flush - Normal Saline IVF 10 ml Q12HR OSCAR Administration Sodium Chloride 10 ml 10/31/19 19:32 11/05/19 08:50 Flush - Normal Saline IVF 10 ml PRN PRN Administration Saline Flush - Exam General Appearance: awake alert Eye: anicteric sclera ENT: moist mucosa Neck: supple Heart: RRR Respiratory: CTAB Gastrointestinal: soft Extremities: no cyanosis Psychiatric: normal affect Hosp A/P (1) Bacteremia Code(s): R78.81 - BACTEREMIA Status: Acute (2) UTI (urinary tract infection) Status: Acute (3) Abnormal LFTs Code(s): R94.5 - ABNORMAL RESULTS OF LIVER FUNCTION STUDIES Status: Acute (4) HIEN (acute kidney injury) Code(s): N17.9 - ACUTE KIDNEY FAILURE, UNSPECIFIED Status: Acute (5) Rhabdomyolysis Code(s): M62.82 - RHABDOMYOLYSIS Status: Acute (6) Lactic acidosis Code(s): E87.2 - ACIDOSIS Status: Acute (7) Ischemic cerebrovascular accident (CVA) Code(s): I63.9 - CEREBRAL INFARCTION, UNSPECIFIED Status: Acute (8) Septic shock Code(s): A41.9 - SEPSIS, UNSPECIFIED ORGANISM; R65.21 - SEVERE SEPSIS WITH SEPTIC SHOCK Status: Resolved (9) Seizure Code(s): R56.9 - UNSPECIFIED CONVULSIONS Status: Resolved - Plan Continue IV ceftriaxone for Klebsiella bacteremia and E. coli UTI Rhabdo improved Creatinine improving Continue aspirin for acute ischemic cerebellar CVA. Continue IV fluids. COVID-19 negative. PCCM/Nephrology/Neurology/ID following.
--- NOTE | 2019-11-05 18:16 | PRG ---
DATE OF SERVICE: 11/05/2019 SUBJECTIVE: The patient is quite alert, but started having diarrhea, being tested for Clostridium difficile. Denies any respiratory symptoms or abdominal pain. He still has a Palomino catheter. OBJECTIVE: VITAL SIGNS: He is afebrile. HEENT: Ocular movements conjugate. LUNGS: Symmetric air entry. HEART: S1 and S2. Regular rate. ABDOMEN: Soft. Not distended. Bowel sounds are normal. LABORATORY DATA: White cell count is down to 10.8, hemoglobin 10.9, platelets 143 with 87% neutrophils. Creatinine 4.50, which is improved from the last one, and he is currently receiving ceftriaxone. ASSESSMENT AND DISCUSSION: Prior cerebrovascular accident, now superimposed cerebellar cerebrovascular accident with bladder outflow tract obstruction due to benign prostatic hypertrophy and urosepsis due to a very sensitive Klebsiella pneumoniae. Currently, on Rocephin. He still has another 4 days to complete therapy. We will go ahead and check his C-reactive protein, and hopefully, we will continue to improve his creatinine. Job ID: [id number]
[2019-11-05] MEDS: levETIRAcetam 500 mg/5 ml Oral Solution PO SCH (23:09)
[2019-11-05] MEDS: Famotidine 20 MG TAB PO SCH (23:09)
[2019-11-05] MEDS: Insulin Glargine 10 UNITS in Pre-Filled Syringe 1 EACH SC SCH (23:10)
[2019-11-06 05:37] LABS: Anion Gap 11 mmol/L (10-20); BUN (Urea Nitrogen) 47 mg/dL (8.4-25.7); Calc. Creatinine Clearance 31 mL/min (70-130); Calcium 7.6 mg/dL (7.8-10.44); Carbon Dioxide 29 mmol/L (22-29); Chloride 105 mmol/L (98-107); Estimated GFR-MDRD 21; Glucose 242 mg/dL (70-105); Potassium 3.3 mmol/L (3.5-5.1); Sodium 142 mmol/L (136-145)
[2019-11-06] MEDS: HumaLOG 300 UNITS/3 ML VIAL SC PRN ×2 (06:08→11:34)
[2019-11-06 06:21] LABS: Band 2 % (5-11); Eosinophils 7 % (0-10); Hemoglobin 10.2 g/dL (14.0-18.0); Lymphocytes 28 % (21-51); MDiff Complete? YES; Mean Corpuscular HGB CONC 34.1 g/dL (32.0-36.0); Mean Corpuscular Hemoglobin 28.6 pg (27.0-31.0); Mean Corpuscular Volume 83.9 fL (78.0-98.0); Mean Platelet Volume 8.5 fL (7.4-10.4); Monocytes 4 % (0-10); Neutrophil 59 % (42-75); Platelet Count 156 thou/uL (130-400); RBC Distribution Width 13.5 % (11.5-14.5); Red Blood Cell (RBC) Count 3.55 mill/uL (4.70-6.10); White Blood Cell (WBC) Count 5.8 thou/uL (4.8-10.8)
[2019-11-06] MEDS: levETIRAcetam 500 mg/5 ml Oral Solution PO SCH ×2 (09:31→22:51)
[2019-11-06] MEDS: Calcium Carbonate 600 MG + Vit D TAB PO SCH (09:33)
[2019-11-06] MEDS: Potassium Chloride 20 MEQ TAB PO SCH ×2 (09:33→16:48)
[2019-11-06] MEDS: Aspirin 325 mg Enteric Coated Tablet PO SCH (09:33)
[2019-11-06] MEDS: Carvedilol 6.25 MG TAB PO SCH ×2 (09:33→22:43)
[2019-11-06] MEDS: Heparin 5,000 UNITS/ML VIAL SC SCH ×3 (09:34→22:44)
[2019-11-06] MEDS: cefTRIAXone\\ROCEPHIN 2 GM in Sodium Chloride 0.9% 100 ML IVPB SCH (09:42)
--- NOTE | 2019-11-06 12:49 | PRG ---
DATE OF SERVICE: 11/06/2019 SERVICE: Nephrology. SUBJECTIVE: A 53-year-old male seen in followup for acute renal failure. The patient was admitted due to septic shock and seizure and subsequently, found to have acute CVA. Clinically improved. No new problem. Tolerating oral intake. OBJECTIVE: VITAL SIGNS: Temperature 99.1, pulse 96, respiratory rate 20, SpO2 of 97% on room air, and blood pressure 158/99. GENERAL: Comfortable male patient, in no distress. HEENT: Normocephalic, atraumatic. Oral mucosa is moist. CARDIOVASCULAR: Regular rhythm and rate with normal heart sounds 1 and 2. RESPIRATORY: Fair air entry bilaterally. A few transmitted breath sounds. No obvious crackle or rhonchi or use of accessory muscles. GI: Full, soft, nontender, nondistended with normal bowel sounds. EXTREMITIES: Grossly normal looking, atraumatic, with no edema or erythema. 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 Oriented x2 at least. Some slow mentation was appreciated. Moves all extremities, though weakly. DIAGNOSTIC DATA: CBC showed WBC count of 5.0, hemoglobin of 10.2, and platelets of 156. Chemistry shows sodium of 142, potassium 3.3, chloride 105, CO2 of 29, BUN 47, creatinine 3.69, glucose 242, and calcium 7.6. ASSESSMENT: 1. Acute renal failure: Due to acute tubular necrosis related to septic shock. Rhabdomyolysis also was contributory. We are now in the recovery phase of the acute tubular necrosis. Creatinine is trending downwards. 2. Hypokalemia. 3. Metabolic acidosis, improved. 4. Diabetes mellitus with hyperglycemia. 5. Hypertension: Control is fair. PLAN: 1. Discontinue sodium bicarb infusion. 2. Replete serum potassium with potassium chloride. 3. Monitor vitals and restart amlodipine if blood pressure is still elevated after discontinuation of IV fluid. 4. Continue to monitor intake and output as well as electrolytes and urine output. Further treatment to follow depending on hospital course. Job ID: [id number]
--- NOTE | 2019-11-06 12:53 | PDOC.HOSPP ---
- Subjective Encounter Date: 11/06/19 Subjective: NEUROLOGY PROGRESS NOTE Patient doing better . No acute events overnight. - Objective Vital Signs & Weight: Vital Signs (12 hours) Temp Pulse Resp BP BP Pulse Ox 11/06/19 12:00 98.6 F 90 18 132/88 98 11/06/19 09:33 158/99 H 11/06/19 07:40 97 11/06/19 07:39 99.1 F 96 20 158/99 H 97 11/06/19 03:40 98.2 F 86 20 153/99 H 97 Weight Admit Weight 169 lb 15.622 oz Weight 207 lb 3.2 oz Most Recent Monitor Data Heart Rate from ECG 84 NIBP 140/103 NIBP BP-Mean 115 Respiration from ECG 13 SpO2 97 I&O: 11/05/19 11/06/19 11/07/19 06:59 06:59 06:59 Intake Total 340 2060 300 Output Total 4000 2435 Balance -3660 -375 300 Result Diagrams: 11/06/19 04:49 11/06/19 04:49 Additional Labs: Accuchecks 11/06/19 11/06/19 11/05/19 10:55 05:39 21:24 POC Glucose 171 H 207 H 287 H 11/05/19 16:47 POC Glucose 224 H Radiology Reviewed by me: Yes EKG Reviewed by me: Yes Hospitalist ROS - Review of Systems Constitutional: denies: fever, chills, sweats, weakness, malaise, other Eyes: denies: pain, vision change, conjunctivae inflammation, eyelid inflammation, redness, other ENT: denies: ear pain, ear discharge, nose pain, nose discharge, nose congestion , mouth pain, mouth swelling, throat pain, throat swelling, other Respiratory: denies: cough, dry, shortness of breath, hemoptysis, SOB with excertion, pleuritic pain, sputum, wheezing, other Cardiovascular: denies: chest pain, palpitations, orthopnea, paroxysmal noc. dyspnea, edema, light headedness, other Gastrointestinal: denies: nausea, vomiting, abdominal pain, diarrhea, constipation, melena, hematochezia, other Genitourinary: denies: dysuria, frequency, incontinence, hematuria, retention, other Musculoskeletal: denies: neck pain, shoulder pain, arm pain, back pain, hand pain, leg pain, foot pain, other Neurological: reports: incoordination, confusion, seizures - Medication Medications: Active Medications Generic Name Dose Route Start Last Admin Trade Name Freq PRN Reason Stop Dose Admin Acetaminophen 650 mg 10/31/19 16:28 11/05/19 04:25 Tylenol PO 650 mg Q4H PRN Administration Headache/Fever/Mild Pain (1-3) Aspirin 325 mg 11/03/19 09:00 11/06/19 09:33 Ecotrin PO 325 mg DAILY OSCAR Administration Calcium/Vitamin D 1 tab 11/02/19 09:00 11/06/19 09:33 Caltrate 600 + Vit D PO 1 tab DAILY OSCAR Administration Carvedilol 12.5 mg 11/04/19 21:00 11/06/19 09:33 Coreg PO 12.5 mg BID OSCAR Administration Ergocalciferol 1.25 mg 11/04/19 09:00 11/04/19 09:48 Drisdol PO 1.25 mg Q7DAYS OSCAR Administration Famotidine 20 mg 11/05/19 21:00 11/05/19 23:09 Pepcid PO 20 mg HS OSCAR Administration Glipizide 5 mg 11/06/19 08:00 11/06/19 09:33 Glucotrol Xl PO 5 mg QAM-WM OSCAR Administration Glipizide 2.5 mg 11/05/19 17:00 11/05/19 17:50 Glucotrol Xl PO 2.5 mg QPM-WM OSCAR Administration Heparin Sodium (Porcine) 5,000 units 10/31/19 21:00 11/06/19 09:34 Heparin SC 5,000 units TID OSCAR Administration Ceftriaxone Sodium 2 gm/ 100 mls @ 200 mls/hr 11/02/19 09:30 11/06/19 09:42 Sodium Chloride IVPB 100 mls Q24HR OSCAR Administration Insulin Glargine 10 units/ 0.1 mls @ 0 mls/hr 11/05/19 21:00 11/05/19 23:10 Miscellaneous Medication SC 0.1 mls HS OSCAR Administration Insulin Human Lispro 0 units 11/04/19 21:05 11/04/19 21:41 Humalog SC 3 unit .BEDTIME SLIDING SC PRN Administration Bedtime Correctional Scale Insulin Human Lispro 0 units 11/05/19 14:18 11/06/19 11:34 Humalog SC 2 unit .MODERATE SLIDING SC PRN Administration Moderate Correctional Scale Levetiracetam 750 mg 11/05/19 21:00 11/06/19 09:31 Keppra Oral Solution PO 750 mg Q12HR OSCAR Administration Potassium Chloride 40 meq 11/06/19 08:00 11/06/19 09:33 K-Dur PO 11/06/19 17:01 40 meq BID-WM OSCAR Administration Sodium Chloride 10 ml 10/31/19 21:00 11/06/19 09:34 Flush - Normal Saline IVF 10 ml Q12HR OSCAR Administration Sodium Chloride 10 ml 10/31/19 19:32 11/05/19 08:50 Flush - Normal Saline IVF 10 ml PRN PRN Administration Saline Flush - Exam General Appearance: awake alert Eye: PERRL ENT: normocephalic atraumatic Neck: supple Heart: RRR Respiratory: CTAB Gastrointestinal: soft Extremities: no cyanosis Skin: normal turgor Neurological: no new deficit Psychiatric: normal affect, normal behavior, oriented to person, oriented to place Hosp A/P (1) Seizure Code(s): R56.9 - UNSPECIFIED CONVULSIONS Status: Resolved (2) HIEN (acute kidney injury) Code(s): N17.9 - ACUTE KIDNEY FAILURE, UNSPECIFIED Status: Acute (3) Abnormal LFTs Code(s): R94.5 - ABNORMAL RESULTS OF LIVER FUNCTION STUDIES Status: Acute (4) Bacteremia Code(s): R78.81 - BACTEREMIA Status: Acute (5) Lactic acidosis Code(s): E87.2 - ACIDOSIS Status: Acute (6) Rhabdomyolysis Code(s): M62.82 - RHABDOMYOLYSIS Status: Acute (7) Septic shock Code(s): A41.9 - SEPSIS, UNSPECIFIED ORGANISM; R65.21 - SEVERE SEPSIS WITH SEPTIC SHOCK Status: Resolved (8) UTI (urinary tract infection) Status: Acute - Plan PT/OT, speech therapy, DVT proph w/lovenox 53 year old male with new onset seizure and acute left cerebellar infarction. Clinically alert and oriented x 2. Follows commands appropriately. Carotid dopplers did not reveal significant stenosis. Initial EEG reviewed which showed spikes emanating from the left frontotemporal region. Keppra dose increased to 750 mg IV q12 . Repeat EEG improved. No seizures documented. Ativan 2 mg IV for seizure greater then 2 minutes. Observe seizure precautions. MRI brain reviewed which showed acute left cerebellar infarction. 2 D echo showed EF 45-5-%. Telemetry Neurochecks every 4 hours. Recommend stat NCHCT if neurological decline. Continue aspirin and recommend high intensity statin for secondary stroke prevention. PT/OT/Speech DVT prophylaxis. Continue medical management per primary team.
--- NOTE | 2019-11-06 13:18 | PDOC.HOSPP ---
- Subjective Encounter Date: 11/06/19 Encounter Time: 07:00 Subjective: Pt seen for followup for bacteremia. Sleepy but arousable but not speaking, could not complete ROS. - Objective Vital Signs & Weight: Vital Signs (12 hours) Temp Pulse Resp BP BP Pulse Ox 11/06/19 12:00 98.6 F 90 18 132/88 98 11/06/19 09:33 158/99 H 11/06/19 07:40 97 11/06/19 07:39 99.1 F 96 20 158/99 H 97 11/06/19 03:40 98.2 F 86 20 153/99 H 97 Weight Admit Weight 169 lb 15.622 oz Weight 207 lb 3.2 oz Most Recent Monitor Data Heart Rate from ECG 84 NIBP 140/103 NIBP BP-Mean 115 Respiration from ECG 13 SpO2 97 I&O: 11/05/19 11/06/19 11/07/19 06:59 06:59 06:59 Intake Total 340 2060 600 Output Total 4000 2435 Balance -3660 -375 600 Result Diagrams: 11/06/19 04:49 11/06/19 04:49 Additional Labs: Accuchecks 11/06/19 11/06/19 11/05/19 10:55 05:39 21:24 POC Glucose 171 H 207 H 287 H 11/05/19 16:47 POC Glucose 224 H Labs and MARs reviewed by me EKG Reviewed by me: Yes (Tele: NSR) Hospitalist ROS - Review of Systems ROS unobtainable: due to mental status - Medication Medications: Active Medications Generic Name Dose Route Start Last Admin Trade Name Freq PRN Reason Stop Dose Admin Acetaminophen 650 mg 10/31/19 16:28 11/05/19 04:25 Tylenol PO 650 mg Q4H PRN Administration Headache/Fever/Mild Pain (1-3) Aspirin 325 mg 11/03/19 09:00 11/06/19 09:33 Ecotrin PO 325 mg DAILY OSCAR Administration Calcium/Vitamin D 1 tab 11/02/19 09:00 11/06/19 09:33 Caltrate 600 + Vit D PO 1 tab DAILY OSCAR Administration Carvedilol 12.5 mg 11/04/19 21:00 11/06/19 09:33 Coreg PO 12.5 mg BID OSCAR Administration Ergocalciferol 1.25 mg 11/04/19 09:00 11/04/19 09:48 Drisdol PO 1.25 mg Q7DAYS OSCAR Administration Famotidine 20 mg 11/05/19 21:00 11/05/19 23:09 Pepcid PO 20 mg HS OSCAR Administration Glipizide 5 mg 11/06/19 08:00 11/06/19 09:33 Glucotrol Xl PO 5 mg QAM-WM OSCAR Administration Glipizide 2.5 mg 11/05/19 17:00 11/05/19 17:50 Glucotrol Xl PO 2.5 mg QPM-WM OSCAR Administration Heparin Sodium (Porcine) 5,000 units 10/31/19 21:00 11/06/19 09:34 Heparin SC 5,000 units TID OSCAR Administration Ceftriaxone Sodium 2 gm/ 100 mls @ 200 mls/hr 11/02/19 09:30 11/06/19 09:42 Sodium Chloride IVPB 100 mls Q24HR OSCAR Administration Insulin Glargine 10 units/ 0.1 mls @ 0 mls/hr 11/05/19 21:00 11/05/19 23:10 Miscellaneous Medication SC 0.1 mls HS OSCAR Administration Insulin Human Lispro 0 units 11/04/19 21:05 11/04/19 21:41 Humalog SC 3 unit .BEDTIME SLIDING SC PRN Administration Bedtime Correctional Scale Insulin Human Lispro 0 units 11/05/19 14:18 11/06/19 11:34 Humalog SC 2 unit .MODERATE SLIDING SC PRN Administration Moderate Correctional Scale Levetiracetam 750 mg 11/05/19 21:00 11/06/19 09:31 Keppra Oral Solution PO 750 mg Q12HR OSCAR Administration Potassium Chloride 40 meq 11/06/19 08:00 11/06/19 09:33 K-Dur PO 11/06/19 17:01 40 meq BID-WM OSCAR Administration Sodium Chloride 10 ml 10/31/19 21:00 11/06/19 09:34 Flush - Normal Saline IVF 10 ml Q12HR OSCAR Administration Sodium Chloride 10 ml 10/31/19 19:32 11/05/19 08:50 Flush - Normal Saline IVF 10 ml PRN PRN Administration Saline Flush - Exam General Appearance: awake alert Eye: anicteric sclera ENT: moist mucosa Neck: supple Heart: RRR Respiratory: CTAB, normal chest expansion Gastrointestinal: soft, non-tender, normal bowel sounds Skin: no rashes Psychiatric: lethargic Hosp A/P (1) Bacteremia Code(s): R78.81 - BACTEREMIA Status: Acute (2) UTI (urinary tract infection) Status: Acute (3) Abnormal LFTs Code(s): R94.5 - ABNORMAL RESULTS OF LIVER FUNCTION STUDIES Status: Acute (4) HIEN (acute kidney injury) Code(s): N17.9 - ACUTE KIDNEY FAILURE, UNSPECIFIED Status: Acute (5) Rhabdomyolysis Code(s): M62.82 - RHABDOMYOLYSIS Status: Acute (6) Lactic acidosis Code(s): E87.2 - ACIDOSIS Status: Acute (7) Ischemic cerebrovascular accident (CVA) Code(s): I63.9 - CEREBRAL INFARCTION, UNSPECIFIED Status: Acute (8) Septic shock Code(s): A41.9 - SEPSIS, UNSPECIFIED ORGANISM; R65.21 - SEVERE SEPSIS WITH SEPTIC SHOCK Status: Resolved (9) Seizure Code(s): R56.9 - UNSPECIFIED CONVULSIONS Status: Resolved - Plan [facility] resident admitted on 10/31/2019 for sepsis and new-onset seizure. Seizures resolved, pt is on Keppra now. Pt has Klebsiella bacteremia and E. coli UTI, on IV ceftriaxone. Also had HIEN likely due to rhabdomyolysis, improving (Cr 3.69 today). MRI brain for seizure workup also showed acute ischemic cerebellar CVA, pt is on aspirin. Continue IV fluids. Vitamin D deficiency. COVID-19 negative. PCCM/Nephrology/Neurology/ID following. Once renal function improves, return to [facility].
[2019-11-06] MEDS: Famotidine 20 MG TAB PO SCH (22:42)
[2019-11-06] MEDS: Insulin Glargine 10 UNITS in Pre-Filled Syringe 1 EACH SC SCH (22:44)
[2019-11-07] MEDS: HumaLOG 300 UNITS/3 ML VIAL SC PRN ×3 (05:59→17:27)
[2019-11-07 06:27] LABS: Hemoglobin 9.5 g/dL (14.0-18.0); Mean Corpuscular HGB CONC 33.9 g/dL (32.0-36.0); Mean Corpuscular Hemoglobin 28.6 pg (27.0-31.0); Mean Corpuscular Volume 84.5 fL (78.0-98.0); Mean Platelet Volume 8.2 fL (7.4-10.4); Platelet Count 220 thou/uL (130-400); RBC Distribution Width 13.5 % (11.5-14.5); Red Blood Cell (RBC) Count 3.31 mill/uL (4.70-6.10); White Blood Cell (WBC) Count 5.7 thou/uL (4.8-10.8)
[2019-11-07 06:45] LABS: Anion Gap 13 mmol/L (10-20); BUN (Urea Nitrogen) 41 mg/dL (8.4-25.7); Calc. Creatinine Clearance 39 mL/min (70-130); Calcium 7.7 mg/dL (7.8-10.44); Carbon Dioxide 29 mmol/L (22-29); Chloride 108 mmol/L (98-107); Estimated GFR-MDRD 27; Glucose 181 mg/dL (70-105); Potassium 3.6 mmol/L (3.5-5.1); Sodium 146 mmol/L (136-145)
[2019-11-07] MEDS ORDERED: Carvedilol 6.25 MG TAB PO SCH (06:45)
[2019-11-07 06:51] LABS: Band 3 % (5-11); Eosinophils 12 % (0-10); Lymphocytes 25 % (21-51); MDiff Complete? YES; Metamyelocyte 1 % (0-0); Monocytes 7 % (0-10); Myelocyte 2 % (0-0); Neutrophil 50 % (42-75)
[2019-11-07] MEDS: Aspirin 325 mg Enteric Coated Tablet PO SCH (08:40)
[2019-11-07] MEDS: Calcium Carbonate 600 MG + Vit D TAB PO SCH (08:41)
[2019-11-07] MEDS: levETIRAcetam 500 mg/5 ml Oral Solution PO SCH ×2 (08:42→21:59)
[2019-11-07] MEDS: Heparin 5,000 UNITS/ML VIAL SC SCH ×3 (08:43→22:01)
[2019-11-07] MEDS: cefTRIAXone\\ROCEPHIN 2 GM in Sodium Chloride 0.9% 100 ML IVPB SCH (08:44)
[2019-11-07] MEDS ORDERED: Sodium Chloride 0.45% 1,000 ML IV SCH (10:00)
--- NOTE | 2019-11-07 12:23 | EKG ---
Test Reason : Blood Pressure : / mmHG Vent. Rate : 123 BPM Atrial Rate : 123 BPM P-R Int : 148 ms QRS Dur : 078 ms QT Int : 322 ms P-R-T Axes : 022 -31 -13 degrees QTc Int : 460 ms Sinus tachycardia Left axis deviation Nonspecific T wave abnormality Abnormal ECG Confirmed by SHAILESH MUNOZ, MILTON ([id number]), multimedia editor YESSENIA RAMEY ([id number]) on 11/07/2019 12:23:00 PM Referred By: Confirmed By:MILTON CASH MD
--- NOTE | 2019-11-07 12:38 | PDOC.HOSPP ---
- Subjective Encounter Date: 11/07/19 Encounter Time: 12:30 Subjective: f/u for ATN/Klebsiella bacteremia/UTI on Rocephin and IVF's. Renal function improving slowly. - Objective Vital Signs & Weight: Vital Signs (12 hours) Temp Pulse Resp BP Pulse Ox 11/07/19 11:39 97.8 F 75 20 157/97 H 99 11/07/19 07:26 100 11/07/19 07:23 98.3 F 83 16 158/96 H 100 11/07/19 05:47 98.6 F 85 16 169/100 H 95 Weight Admit Weight 169 lb 15.622 oz Weight 207 lb 4.8 oz Most Recent Monitor Data Heart Rate from ECG 84 NIBP 140/103 NIBP BP-Mean 115 Respiration from ECG 13 SpO2 97 I&O: 11/06/19 11/07/19 11/08/19 06:59 06:59 06:59 Intake Total 2060 1125 Output Total 2435 3450 Balance -375 -0172 Result Diagrams: 11/07/19 06:08 11/07/19 06:08 Additional Labs: Accuchecks 11/07/19 11/07/19 11/06/19 11:48 05:21 20:04 POC Glucose 164 H 194 H 191 H 11/06/19 16:47 POC Glucose 203 H Radiology Reviewed by me: Yes (Echo - EF 45-50%, Grade I/III diast dysfxn) EKG Reviewed by me: Yes (Tele - SR) Hospitalist ROS - Medication Medications: Active Medications Generic Name Dose Route Start Last Admin Trade Name Freq PRN Reason Stop Dose Admin Acetaminophen 650 mg 10/31/19 16:28 11/05/19 04:25 Tylenol PO 650 mg Q4H PRN Administration Headache/Fever/Mild Pain (1-3) Aspirin 325 mg 11/03/19 09:00 11/07/19 08:40 Ecotrin PO 325 mg DAILY OSCAR Administration Calcium/Vitamin D 1 tab 11/02/19 09:00 11/07/19 08:41 Caltrate 600 + Vit D PO 1 tab DAILY OSCAR Administration Ergocalciferol 1.25 mg 11/04/19 09:00 11/04/19 09:48 Drisdol PO 1.25 mg Q7DAYS OSCAR Administration Famotidine 20 mg 11/05/19 21:00 11/06/19 22:42 Pepcid PO 20 mg HS OSCAR Administration Glipizide 5 mg 11/06/19 08:00 11/07/19 08:40 Glucotrol Xl PO 5 mg QAM-WM OSCAR Administration Glipizide 2.5 mg 11/05/19 17:00 11/06/19 16:48 Glucotrol Xl PO 2.5 mg QPM-WM OSCAR Administration Heparin Sodium (Porcine) 5,000 units 10/31/19 21:00 11/07/19 08:43 Heparin SC 5,000 units TID OSCAR Administration Ceftriaxone Sodium 2 gm/ 100 mls @ 200 mls/hr 11/02/19 09:30 11/07/19 08:44 Sodium Chloride IVPB 100 mls Q24HR OSCAR Administration Insulin Glargine 10 units/ 0.1 mls @ 0 mls/hr 11/05/19 21:00 11/06/19 22:44 Miscellaneous Medication SC 0.1 mls HS OSCAR Administration Insulin Human Lispro 0 units 11/04/19 21:05 11/04/19 21:41 Humalog SC 3 unit .BEDTIME SLIDING SC PRN Administration Bedtime Correctional Scale Insulin Human Lispro 0 units 11/05/19 14:18 11/07/19 11:54 Humalog SC 2 unit .MODERATE SLIDING SC PRN Administration Moderate Correctional Scale Levetiracetam 750 mg 11/05/19 21:00 11/07/19 08:42 Keppra Oral Solution PO 750 mg Q12HR OSCAR Administration Sodium Chloride 10 ml 10/31/19 21:00 11/07/19 08:43 Flush - Normal Saline IVF 10 ml Q12HR OSCAR Administration Sodium Chloride 10 ml 10/31/19 19:32 11/05/19 08:50 Flush - Normal Saline IVF 10 ml PRN PRN Administration Saline Flush - Exam General - other findings: sleepy but arousable Eye: PERRL, anicteric sclera ENT: normocephalic atraumatic, no oropharyngeal lesions Neck: supple, symmetric Heart: RRR, no murmur, no gallops, no rubs, normal peripheral pulses Heart - other findings: S1, S2 Respiratory: CTAB, no wheezes, no rales, no ronchi, normal chest expansion Gastrointestinal: soft, non-tender, non-distended, normal bowel sounds, no palpable masses Extremities: no cyanosis, no clubbing, no edema Skin: normal turgor Neurological: no new deficit Neurological - other findings: R hemiparesis(chronic) Musculoskeletal: generalized weakness Psychiatric: oriented to person, flat affect, lethargic Hosp A/P (1) Acute kidney failure with tubular necrosis Code(s): N17.0 - ACUTE KIDNEY FAILURE WITH TUBULAR NECROSIS Status: Acute Plan: Slow improvement, continue IVF's but switch to D5 1/2 NS due to mild hypernatremia, avoid nephrotoxic meds and limit contrast exposure (2) Bacteremia Code(s): R78.81 - BACTEREMIA Status: Acute Plan: Secondary to Klebsiella/E. coli spp, continue Rocephin (3) Ischemic cerebrovascular accident (CVA) Code(s): I63.9 - CEREBRAL INFARCTION, UNSPECIFIED Status: Acute Plan: Continue ASA/Lipitor, general stroke protocol (4) Rhabdomyolysis Code(s): M62.82 - RHABDOMYOLYSIS Status: Acute Plan: Resolving, continue IVF's (5) UTI (urinary tract infection) Status: Acute Plan: Continue Rocephin (6) Seizure Code(s): R56.9 - UNSPECIFIED CONVULSIONS Status: Acute Plan: Likely multifactorial, continue Keppra 750mg po q12h - Plan continue antibiotics, PT/OT, social media developer, speech therapy, DVT proph w/SCDs Stable currently Change IVF's to D5 1/2 NS @ 100ml/h Continue Keppra 750mg po BID Continue MACHINE TOOL OPERATOR/PT AM lab: BMP, H/H
[2019-11-07] MEDS: Dextrose 5 %-0.45 % NaCl 1,000 ML IV SCH (13:16)
[2019-11-07] MEDS ORDERED: Potassium Chloride 20 MEQ TAB PO SCH (15:30)
--- NOTE | 2019-11-07 15:47 | PRG ---
DATE OF SERVICE: 11/07/2019 SERVICE: Nephrology. SUBJECTIVE: A 53-year-old male patient seen in followup for acute renal failure. The patient was admitted initially due to mental status change, seizure,and hypotension and subsequently found to have acute CVA as well as septic shock. Nephrology is following the patient for acute kidney injury/acute renal failure due to acute tubular necrosis. The patient has no new complaint. Denied chest pain, shortness of breath, abdominal pain, or leg swelling. Mental status has improved that the patient is conversational and eating, tolerating oral intake adequately. OBJECTIVE: VITAL SIGNS: Temperature 98.3, pulse 83, respiratory rate 16, SpO2 of 100% on room air, blood pressure is 158/96. I and O in the last 24 hours showed total intake of 125 with total output of 3450. GENERAL: Middle-age male, in no obvious distress. Afebrile and anicteric. HEENT: Normocephalic and atraumatic. Oral mucosa is dry. NECK: Supple with no JVD. CARDIOVASCULAR: Regular rhythm and rate with normal heart sounds 1 and 2. RESPIRATORY: Fair air entry bilaterally with no obvious crackle or rhonchi or use of accessory muscles. GI: Full, soft, nontender, and nondistended with normal bowel sounds. UROGENITAL: Palomino catheter is in place, draining some urine. EXTREMITIES: Grossly normal looking, atraumatic with no edema or erythema. WILL CALL ORDER CLERK: Conscious and alert and oriented x3 with appropriate mental status. The patient has some mild slowness of mentation. Cranial nerves 2 through 12 are grossly intact. The patient moves all extremities. DIAGNOSTIC DATA: CBC showed WBC count of 5.7, hemoglobin of 9.5, MCV of 84.5, and platelets of 220. Chemistry today showed sodium 146, potassium 3.6, chloride 108, CO2 of 29, BUN 41, creatinine 2.98, glucose 181, and calcium 7.7. Of note, creatinine has gone down from peak of 5.16. ASSESSMENT: 1. Acute renal failure: Due to acute tubular necrosis. Creatinine is trending downwards. The patient is currently in the polyuric phase of acute tubular necrosis recovery. He has been negative in the last 2 to 3 days in I and O. 2. Hypernatremia: Due to dehydration with excess free water deficit. 3. Hypokalemia: Due to increased losses from the kidney. 4. Hypertension: Control is still suboptimal. 5. Dehydration: Due to urinary losses. The patient is at the polyuric phase of acute tubular necrosis recovery. 6. Metabolic acidosis: Resolved. 7. Vitamin D deficiency: On supplementation. PLAN: 1. We will start hypotonic solution through the IV due to dehydration with hypernatremia to provide free water. 2. [place] free water intake was advised. 3. We will increase carvedilol to 25 mg b.i.d. from 12.5 b.i.d. 4. We will continue vitamin D supplementation. 5. We will continue to monitor intake and output. 6. Further treatment to follow depending on hospital course. We will also replete serum potassium and get serum magnesium in the morning. Job ID: [id number]
[2019-11-07] MEDS: Insulin Glargine 10 UNITS in Pre-Filled Syringe 1 EACH SC SCH (21:58)
[2019-11-07] MEDS: Famotidine 20 MG TAB PO SCH (22:00)
[2019-11-07] MEDS: Carvedilol 6.25 MG TAB PO SCH (22:01)
[2019-11-08] MEDS: Dextrose 5 %-0.45 % NaCl 1,000 ML IV SCH ×4 (00:08→23:13)
[2019-11-08 05:46] LABS: Hemoglobin 9.8 g/dL (14.0-18.0); Platelet Count 265 thou/uL (130-400)
[2019-11-08 06:16] LABS: Anion Gap 12 mmol/L (10-20); BUN (Urea Nitrogen) 31 mg/dL (8.4-25.7); Calc. Creatinine Clearance 51 mL/min (70-130); Calcium 7.9 mg/dL (7.8-10.44); Carbon Dioxide 29 mmol/L (22-29); Chloride 106 mmol/L (98-107); Estimated GFR-MDRD 37; Glucose 180 mg/dL (70-105); Magnesium 1.2 mg/dL (1.6-2.6); Potassium 3.5 mmol/L (3.5-5.1); Sodium 143 mmol/L (136-145)
[2019-11-08] MEDS ORDERED: Potassium Chloride 20 MEQ TAB PO SCH (07:15)
[2019-11-08] MEDS ORDERED: Magnesium Sulfate 4 GM in Sodium Chloride 0.9% 250 ML 250 ML IVPB SCH (07:15)
[2019-11-08] MEDS: Carvedilol 6.25 MG TAB PO SCH ×2 (08:22→20:34)
[2019-11-08] MEDS: Amlodipine 10 MG TAB PO SCH (08:24)
[2019-11-08] MEDS: Heparin 5,000 UNITS/ML VIAL SC SCH ×3 (08:25→20:35)
[2019-11-08] MEDS: Calcium Carbonate 600 MG + Vit D TAB PO SCH (08:25)
[2019-11-08] MEDS: levETIRAcetam 500 mg/5 ml Oral Solution PO SCH ×2 (08:26→20:35)
[2019-11-08] MEDS: Aspirin 325 mg Enteric Coated Tablet PO SCH (08:26)
[2019-11-08] MEDS: HumaLOG 300 UNITS/3 ML VIAL SC PRN (10:56)
[2019-11-08] MEDS: cefTRIAXone\\ROCEPHIN 2 GM in Sodium Chloride 0.9% 100 ML IVPB SCH (11:24)
--- NOTE | 2019-11-08 13:45 | PRG ---
DATE OF SERVICE: 11/08/2019 SERVICE: Nephrology. SUBJECTIVE: A 53-year-old male patient seen in followup for acute renal failure. The patient was admitted due to acute onset of hypotension and seizure and subsequently found to have septic shock as well as acute CVA. Clinically improved. Oral intake is improved. Denied headache, chest pain, shortness of breath, abdominal pain, or leg edema. OBJECTIVE: VITAL SIGNS: Temperature 97.8, pulse 64, respiratory rate 18, SpO2 of 100% on room air, blood pressure is 166/97. I and O in the last 24 hours showed total intake of 3062 with total output of 1900. GENERAL: Male patient, in no obvious distress. Comfortable. Afebrile, anicteric, acyanotic. HEENT: Normocephalic, atraumatic. Oral mucosa is moist. NECK: Supple with no JVD. CARDIOVASCULAR: Regular rhythm and rate with normal heart sounds 1 and 2. RESPIRATORY: Good air entry bilaterally with no obvious crackle, rhonchi, or use of accessory muscles. GASTROINTESTINAL: Full, soft, nontender, and nondistended with normal bowel sounds. UROGENITAL: Palomino catheter is in place draining urine. EXTREMITIES: Grossly normal, looking atraumatic with no edema or erythema. CENTRAL NERVOUS SYSTEM: Conscious, alert, and oriented x3 with appropriate mental status. The patient moves all extremities, though power is decreased on the left side. DIAGNOSTIC DATA: CBC showed WBC count of 9.8, hemoglobin of , and platelet of 265. Chemistry showed sodium 143, potassium 3.5, chloride 106, CO2 of 29, BUN 31, creatinine 2.29, glucose 180, magnesium 1.2, calcium 7.9. ASSESSMENT: 1. Acute kidney injury: Due to acute tubular necrosis. Creatinine is trending downwards. 2. Acute tubular necrosis: Due to septic shock and rhabdomyolysis. 3. Volume depletion: Due to decreased oral intake as well as increased urinary losses due to polyuric phase of acute tubular necrosis resolution. 4. Hypomagnesemia. 5. Hypocalcemia. 6. Hypokalemia. 7. Metabolic acidosis, resolved. 8. Hypertension: Control is suboptimal. 9. Physical deconditioning. 10. Obstructive urinary retention, status post Palomino catheter placement. PLAN: 1. We will start amlodipine 10 mg daily. We will continue carvedilol 25 mg b.i.d. 2. We will decrease crystalloid to 50 mL/hr due to hypertension and if other oral intake has improved. 3. We will replete serum potassium with 40 mEq of potassium chloride. 4. We will monitor intake and output. 5. [place] oral intake advised. 6. Further treatment to follow depending on hospital course. 7. We will recheck renal function test in the morning as well as electrolytes. Job ID: [id number]
--- NOTE | 2019-11-08 15:39 | PDOC.HOSPP ---
- Subjective Encounter Date: 11/08/19 Encounter Time: 15:30 Subjective: f/u for ATN/Klebsiella bacteremia/UTI on Rocephin. Overall pt feels better and no recorded fever spikes. - Objective Vital Signs & Weight: Vital Signs (12 hours) Temp Pulse Resp BP Pulse Ox 11/08/19 15:28 98.5 F 80 16 125/85 98 11/08/19 10:59 98.2 F 66 16 155/89 H 100 11/08/19 08:01 100 11/08/19 07:50 97.8 F 64 18 166/97 H 100 11/08/19 04:02 98.1 F 79 20 173/112 H 96 Weight Admit Weight 169 lb 15.622 oz Weight 207 lb 4.8 oz Most Recent Monitor Data Heart Rate from ECG 84 NIBP 140/103 NIBP BP-Mean 115 Respiration from ECG 13 SpO2 97 I&O: 11/07/19 11/08/19 11/09/19 06:59 06:59 06:59 Intake Total 1125 3062 Output Total 3450 1900 Balance -2325 1162 Result Diagrams: 11/08/19 05:36 11/08/19 05:36 Additional Labs: Accuchecks 11/08/19 11/08/19 11/08/19 14:39 10:31 05:26 POC Glucose 160 H 245 H 145 H 11/07/19 11/07/19 21:53 16:34 POC Glucose 215 H 181 H Microbiology 11/05/19 16:42 Stool Stool Culture - Final 11/05/19 16:42 Stool Escherichia coli 0157 Culture - Final 11/05/19 16:42 Stool Campylobacter Antigen Assay - Final 11/05/19 16:42 Stool Shiga Toxin Test - Final 11/05/19 16:42 Stool C. difficile GDH Antigen & Toxins - Final 10/31/19 15:43 Spinal Fluid Culture - Pending Body Fluid Culture - Final 10/31/19 14:35 Urine zamora catheter Urine Culture - Final Escherichia coli Non-Hemolytic Streptococcus 10/31/19 12:12 Venous blood - Right Hand Blood Culture - Final Klebsiella pneumoniae ssp pneu 10/31/19 11:55 Venous blood - Left Arm Blood Culture - Final Klebsiella pneumoniae ssp pneu Coagulase Neg Staphylococcus Laboratory Tests 11/05/19 11/06/19 11/07/19 05:48 04:49 06:08 Creatinine 4.50 H 3.69 H 2.98 H Magnesium 11/08/19 05:36 Creatinine Magnesium 1.2 L EKG Reviewed by me: Yes (Tele - SR) Hospitalist ROS - Medication Medications: Active Medications Generic Name Dose Route Start Last Admin Trade Name Freq PRN Reason Stop Dose Admin Acetaminophen 650 mg 10/31/19 16:28 11/05/19 04:25 Tylenol PO 650 mg Q4H PRN Administration Headache/Fever/Mild Pain (1-3) Amlodipine Besylate 10 mg 11/08/19 09:00 11/08/19 08:24 Norvasc PO 10 mg DAILY OSCAR Administration Aspirin 325 mg 11/03/19 09:00 11/08/19 08:26 Ecotrin PO 325 mg DAILY OSCAR Administration Calcium/Vitamin D 1 tab 11/02/19 09:00 11/08/19 08:25 Caltrate 600 + Vit D PO Not Given DAILY OSCAR Carvedilol 25 mg 11/07/19 21:00 11/08/19 08:22 Coreg PO 25 mg BID OSCAR Administration Ergocalciferol 1.25 mg 11/04/19 09:00 11/04/19 09:48 Drisdol PO 1.25 mg Q7DAYS OSCAR Administration Famotidine 20 mg 11/05/19 21:00 11/07/19 22:00 Pepcid PO 20 mg HS OSCAR Administration Glipizide 5 mg 11/06/19 08:00 11/08/19 08:25 Glucotrol Xl PO 5 mg QAM-WM OSCAR Administration Glipizide 2.5 mg 11/05/19 17:00 11/07/19 17:28 Glucotrol Xl PO 2.5 mg QPM-WM OSCAR Administration Heparin Sodium (Porcine) 5,000 units 10/31/19 21:00 11/08/19 14:34 Heparin SC 5,000 units TID OSCAR Administration Ceftriaxone Sodium 2 gm/ 100 mls @ 200 mls/hr 11/02/19 09:30 11/08/19 11:24 Sodium Chloride IVPB 100 mls Q24HR OSCAR Administration Insulin Glargine 10 units/ 0.1 mls @ 0 mls/hr 11/05/19 21:00 11/07/19 21:58 Miscellaneous Medication SC 0.1 mls HS OSCAR Administration Dextrose/Sodium Chloride 1,000 mls @ 50 mls/hr 11/08/19 13:18 11/08/19 13:31 D5 1/2 Ns IV 1,000 mls .Q20H OSCAR Administration Insulin Human Lispro 0 units 11/04/19 21:05 11/04/19 21:41 Humalog SC 3 unit .BEDTIME SLIDING SC PRN Administration Bedtime Correctional Scale Insulin Human Lispro 0 units 11/05/19 14:18 11/08/19 10:56 Humalog SC 4 unit .MODERATE SLIDING SC PRN Administration Moderate Correctional Scale Levetiracetam 750 mg 11/05/19 21:00 11/08/19 08:26 Keppra Oral Solution PO 750 mg Q12HR OSCAR Administration Sodium Chloride 10 ml 10/31/19 21:00 11/08/19 08:17 Flush - Normal Saline IVF 10 ml Q12HR OSCAR Administration Sodium Chloride 10 ml 10/31/19 19:32 11/05/19 08:50 Flush - Normal Saline IVF 10 ml PRN PRN Administration Saline Flush - Exam General Appearance: NAD, awake alert General - other findings: slow response to questions Eye: PERRL, anicteric sclera ENT: normocephalic atraumatic, no oropharyngeal lesions Neck: supple, symmetric, no JVD, no thyromegaly, no lymphadenopathy Heart: RRR, no murmur, no gallops, no rubs, normal peripheral pulses Heart - other findings: S1, S2 Respiratory: CTAB, no wheezes, no rales, no ronchi, normal chest expansion, no tachypnea Gastrointestinal: soft, non-tender, non-distended, normal bowel sounds, no palpable masses Extremities: no cyanosis, no clubbing Skin: normal turgor, no lesions Neurological: cranial nerve grossly intact, no new deficit Musculoskeletal: generalized weakness Psychiatric: oriented to person, flat affect, somnolent Hosp A/P (1) Acute kidney failure with tubular necrosis Code(s): N17.0 - ACUTE KIDNEY FAILURE WITH TUBULAR NECROSIS Status: Acute Plan: Slow improvement, continue low-volume IVF's (2) Bacteremia Code(s): R78.81 - BACTEREMIA Status: Acute Plan: Continue Rocephin (3) Ischemic cerebrovascular accident (CVA) Code(s): I63.9 - CEREBRAL INFARCTION, UNSPECIFIED Status: Acute (4) Rhabdomyolysis Code(s): M62.82 - RHABDOMYOLYSIS Status: Acute Plan: Resolving (5) UTI (urinary tract infection) Status: Acute Plan: Continue Rocephin IV (6) Seizure Code(s): R56.9 - UNSPECIFIED CONVULSIONS Status: Acute Plan: Continue Keppra 750mg BID - Plan continue antibiotics, PT/OT, social service coordinator, speech therapy, DVT proph w/SCDs Stable currently Change IVF's to D5 1/2 NS @ 50ml/h Continue Keppra 750mg po BID Continue SOFTWARE QUALITY TEST ENGINEER/PT KCL supplementation AM lab: BMP Likely back to SNF in 24-48h
[2019-11-08] MEDS: Famotidine 20 MG TAB PO SCH (20:35)
[2019-11-08] MEDS: Insulin Glargine 10 UNITS in Pre-Filled Syringe 1 EACH SC SCH (20:36)
[2019-11-09 06:38] LABS: Anion Gap 10 mmol/L (10-20); BUN (Urea Nitrogen) 23 mg/dL (8.4-25.7); Calc. Creatinine Clearance 61 mL/min (70-130); Calcium 8.1 mg/dL (7.8-10.44); Carbon Dioxide 29 mmol/L (22-29); Chloride 106 mmol/L (98-107); Estimated GFR-MDRD 45; Glucose 134 mg/dL (70-105); Potassium 3.6 mmol/L (3.5-5.1); Sodium 141 mmol/L (136-145)
[2019-11-09] MEDS ORDERED: Potassium Chloride 20 MEQ TAB PO SCH (07:00)
[2019-11-09] MEDS: levETIRAcetam 500 mg/5 ml Oral Solution PO SCH (08:25)
[2019-11-09] MEDS: Carvedilol 6.25 MG TAB PO SCH (08:27)
[2019-11-09] MEDS: Amlodipine 10 MG TAB PO SCH (08:27)
[2019-11-09] MEDS: Aspirin 325 mg Enteric Coated Tablet PO SCH (08:27)
[2019-11-09] MEDS: Calcium Carbonate 600 MG + Vit D TAB PO SCH (08:27)
[2019-11-09] MEDS: Heparin 5,000 UNITS/ML VIAL SC SCH ×2 (08:39→15:10)
[2019-11-09] MEDS: cefTRIAXone\\ROCEPHIN 2 GM in Sodium Chloride 0.9% 100 ML IVPB SCH (08:44)
[2019-11-09] MEDS: HumaLOG 300 UNITS/3 ML VIAL SC PRN (10:29)
[2019-11-09 11:45] VITALS: BP 133/84; TEMP 98.6
[2019-11-09 12:27] LABS: Cardiac Risk 5.2 (Less than 4.5)
--- NOTE | 2019-11-09 12:55 | PDOC.HOSPP ---
- Subjective Encounter Date: 11/09/19 Subjective: NEUROLOGY PROGRESS NOTE No acute events overnight. - Objective Vital Signs & Weight: Vital Signs (12 hours) Temp Pulse Resp BP Pulse Ox 11/09/19 11:45 98.6 F 73 16 133/84 99 11/09/19 08:50 98 11/09/19 08:27 76 11/09/19 07:33 97.9 F 76 16 139/90 98 11/09/19 04:44 98.4 F 78 16 153/93 H 95 Weight Admit Weight 169 lb 15.622 oz Weight 207 lb 4.8 oz Most Recent Monitor Data Heart Rate from ECG 84 NIBP 140/103 NIBP BP-Mean 115 Respiration from ECG 13 SpO2 97 I&O: 11/08/19 11/09/19 11/10/19 06:59 06:59 06:59 Intake Total 3062 2548 300 Output Total 1900 3915 1000 Balance 1162 -1367 -700 Result Diagrams: 11/08/19 05:36 11/09/19 05:46 Additional Labs: Accuchecks 11/09/19 11/09/19 11/08/19 10:14 04:29 19:39 POC Glucose 188 H 150 H 192 H 11/08/19 11/08/19 17:06 14:39 POC Glucose 144 H 160 H Radiology Reviewed by me: Yes EKG Reviewed by me: Yes Hospitalist ROS - Review of Systems Constitutional: denies: fever, chills, sweats, weakness, malaise, other Eyes: denies: pain, vision change, conjunctivae inflammation, eyelid inflammation, redness, other ENT: denies: ear pain, ear discharge, nose pain, nose discharge, nose congestion , mouth pain, mouth swelling, throat pain, throat swelling, other Respiratory: denies: cough, dry, shortness of breath, hemoptysis, SOB with excertion, pleuritic pain, sputum, wheezing, other Cardiovascular: denies: chest pain, palpitations, orthopnea, paroxysmal noc. dyspnea, edema, light headedness, other Genitourinary: denies: dysuria, frequency, incontinence, hematuria, retention, other Musculoskeletal: denies: neck pain, shoulder pain, arm pain, back pain, hand pain, leg pain, foot pain, other Skin: denies: rash, lesions, azam, bruising, other Neurological: reports: confusion. denies: weakness, numbness, incoordination, change in speech, seizures, other - Medication Medications: Active Medications Generic Name Dose Route Start Last Admin Trade Name Kae PRN Reason Stop Dose Admin Acetaminophen 650 mg 10/31/19 16:28 11/05/19 04:25 Tylenol PO 650 mg Q4H PRN Administration Headache/Fever/Mild Pain (1-3) Amlodipine Besylate 10 mg 11/08/19 09:00 11/09/19 08:27 Norvasc PO 10 mg DAILY OSCAR Administration Aspirin 325 mg 11/03/19 09:00 11/09/19 08:27 Ecotrin PO 325 mg DAILY OSCAR Administration Calcium/Vitamin D 1 tab 11/02/19 09:00 11/09/19 08:27 Caltrate 600 + Vit D PO 1 tab DAILY OSCAR Administration Carvedilol 25 mg 11/07/19 21:00 11/09/19 08:27 Coreg PO 25 mg BID OSCAR Administration Ergocalciferol 1.25 mg 11/04/19 09:00 11/04/19 09:48 Drisdol PO 1.25 mg Q7DAYS OSCAR Administration Famotidine 20 mg 11/05/19 21:00 11/08/19 20:35 Pepcid PO 20 mg HS OSCAR Administration Glipizide 5 mg 11/06/19 08:00 11/09/19 08:27 Glucotrol Xl PO 5 mg QAM-WM OSCAR Administration Glipizide 2.5 mg 11/05/19 17:00 11/08/19 17:51 Glucotrol Xl PO 2.5 mg QPM-WM OSCAR Administration Heparin Sodium (Porcine) 5,000 units 10/31/19 21:00 11/09/19 08:39 Heparin SC 5,000 units TID OSCAR Administration Ceftriaxone Sodium 2 gm/ 100 mls @ 200 mls/hr 11/02/19 09:30 11/09/19 08:44 Sodium Chloride IVPB 100 mls Q24HR OSCAR Administration Insulin Glargine 10 units/ 0.1 mls @ 0 mls/hr 11/05/19 21:00 11/08/19 20:36 Miscellaneous Medication SC 0.1 mls HS OSCAR Administration Insulin Human Lispro 0 units 11/04/19 21:05 11/04/19 21:41 Humalog SC 3 unit .BEDTIME SLIDING SC PRN Administration Bedtime Correctional Scale Insulin Human Lispro 0 units 11/05/19 14:18 11/09/19 10:29 Humalog SC 2 unit .MODERATE SLIDING SC PRN Administration Moderate Correctional Scale Levetiracetam 750 mg 11/05/19 21:00 11/09/19 08:25 Keppra Oral Solution PO 750 mg Q12HR OSCAR Administration Sodium Chloride 10 ml 10/31/19 21:00 11/09/19 08:27 Flush - Normal Saline IVF 10 ml Q12HR OSCAR Administration Sodium Chloride 10 ml 10/31/19 19:32 11/05/19 08:50 Flush - Normal Saline IVF 10 ml PRN PRN Administration Saline Flush - Exam General Appearance: awake alert Eye: PERRL ENT: normocephalic atraumatic Neck: supple Heart: RRR Respiratory: CTAB Gastrointestinal: soft Extremities: no cyanosis, no clubbing Skin: normal turgor Neurological: no new deficit Musculoskeletal: normal tone, normal strength, no muscle wasting Psychiatric: normal affect, normal behavior, oriented to person Hosp A/P (1) Ischemic cerebrovascular accident (CVA) Code(s): I63.9 - CEREBRAL INFARCTION, UNSPECIFIED Status: Acute (2) Seizure Code(s): R56.9 - UNSPECIFIED CONVULSIONS Status: Acute (3) Septic shock Code(s): A41.9 - SEPSIS, UNSPECIFIED ORGANISM; R65.21 - SEVERE SEPSIS WITH SEPTIC SHOCK Status: Resolved (4) Bacteremia Code(s): R78.81 - BACTEREMIA Status: Acute (5) UTI (urinary tract infection) Status: Acute (6) Abnormal LFTs Code(s): R94.5 - ABNORMAL RESULTS OF LIVER FUNCTION STUDIES Status: Acute (7) HIEN (acute kidney injury) Code(s): N17.9 - ACUTE KIDNEY FAILURE, UNSPECIFIED Status: Acute (8) Rhabdomyolysis Code(s): M62.82 - RHABDOMYOLYSIS Status: Acute (9) Lactic acidosis Code(s): E87.2 - ACIDOSIS Status: Acute - Plan PT/OT, speech therapy, DVT proph w/SCDs 53 year old male with new onset seizure and acute left cerebellar infarction. Clinically improved. No seizures. Continue Keppra 750 mg twice daily. Initial EEG reviewed which showed spikes emanating from the left frontotemporal region. Ativan 2 mg IV for seizure greater then 2 minutes. Observe seizure precautions. MRI brain reviewed which showed acute left cerebellar infarction. Carotid dopplers did not reveal significant stenosis. 2 D echo showed EF 45-5-%. Telemetry Neurochecks every 4 hours. Recommend stat NCHCT if neurological decline. Continue aspirin and recommend high intensity statin for secondary stroke prevention. PT/OT/Speech Awaiting placement. DVT prophylaxis. Continue medical management per primary team. No further recommendations from neurology perspective.
--- NOTE | 2019-11-10 01:09 | DIS ---
DATE OF ADMISSION: 10/31/2019 DATE OF DISCHARGE: 11/09/2019 DISCHARGE DIAGNOSES: 1. Acute kidney injury secondarily to acute tubular necrosis. 2. Klebsiella bacteremia. 3. Sepsis secondarily to #2, resolved. 4. Ischemic cerebrovascular accident of left cerebellar region. 5. New onset seizures secondarily to sepsis and acute cerebrovascular accident. 6. Rhabdomyolysis, resolving. 7. Urinary tract infection with Escherichia coli and Streptococcus species. 8. Vascular dementia. 9. Dysphagia, improved. 10. Diabetes mellitus type 2, insulin requiring. 11. Hypertension. CONSULTATIONS: 1. Dr. Nuñez with Nephrology Service. 2. Dr. Maurer with Neurology Service. 3. Dr. Uvaldo Henderson with Infectious Disease Service. 4. Dr. Heaton with Pulmonology Critical Care Service. PERTINENT LABORATORY AND X-RAY FINDINGS: Creatinine ranged between 1.91 to 5.16, estimated GFR ranged between 14 to 45. Total CK ranged between 132 to 2689. Serum ammonia level 12. BNP 245. TSH 4.9, prolactin level 88.44. CBC showed a white blood cell count ranging between 5.7 to 38.1, hemoglobin ranged between 9.1 to 11.1. COVID-19 PCR not detected, 10/31/2019. Blood cultures x2 positive for Klebsiella pneumoniae species pansensitive. Urine culture dated 10/31/2019, showed less than 5000 colonies of E coli and non hemolytic Streptococcus species. Spinal fluid culture dated 10/31/2019, showed no growth at 5 days. C difficile antigen and toxin dated 11/05/2019, negative. Stool culture dated 11/05/2019, negative. CT of the brain without contrast dated 10/31/2019, showed no acute intracranial process. Portable chest x-ray dated 10/31/2019, showed interval placement of left subclavian central venous catheter appropriately positioned. CT of the abdomen and pelvis dated 11/01/2019, showed mild vascular prominence. MRI of the brain dated 11/02/2019, showed acute left cerebellar hemispheric infarct. Carotid Doppler study dated 11/04/2019, showed no significant stenosis. 2D transthoracic echocardiogram dated 11/05/2019, showed ejection fraction of 45% to 50%. Grade 1 of 3 diastolic dysfunction. Anterior hypokinesis. Mild mitral and tricuspid regurgitation. HOSPITAL COURSE: The patient was initially admitted after presenting with seizure activity with associated hypotension. The patient was initially managed for suspected sepsis syndrome and placed on broad-spectrum antibiotic therapy with cefepime and vancomycin. The patient was also given IV Flagyl pending evaluation for source of the sepsis. The patient underwent his CSF evaluation with spinal fluid culture showing no growth as stated previously. The patient was also evaluated by the Neurology Service due to new onset seizure activity and initiated on IV Keppra. MRI imaging of the brain did confirm an acute left cerebellar infarct, likely contributing to patient's presentation. The patient underwent general stroke protocol and received appropriate stroke therapy including aspirin and titration of his antihypertensive regimen. The patient was also initially fluid resuscitated due to the sepsis and initiated on Levophed infusion requiring CCU admission. The patient clinically stabilized in the critical care unit, eventually transitioning to the stroke unit. The patient continued to receive supportive management including IV fluids due to acute kidney injury with associated acute tubular necrosis. Renal function improved slowly during the hospital course with recovery anticipated fully after discharge. The patient exhibited no recurrent seizure activity after initial presentation as his seizure activity was likely multifactorial including underlying sepsis, as well as concomitant acute CVA. Overall, the patient did clinically stabilize to baseline functional status. The patient was tolerating regular oral intake with a mechanical soft diet with stable vital signs. I have examined the patient at the time of discharge and discussed followup instructions. The patient verbalized understanding and agreement ready for discharge, 11/09/2019. DISCHARGE MEDICATIONS: 1. Amlodipine 10 mg p.o. daily. 2. Vitamin C 500 mg p.o. daily. 3. Enteric-coated aspirin 81 mg p.o. daily. 4. Lipitor 40 mg p.o. at bedtime. 5. Chlorthalidone 25 mg p.o. daily. 6. Glucotrol 5 mg p.o. q.a.m. and 2.5 mg p.o. at bedtime. 7. Magnesium oxide 400 mg p.o. daily. 8. Multivitamin 1 tablet p.o. daily. 9. Paxil 10 mg p.o. daily. 10. MiraLAX 17 g p.o. daily. 11. Zinc sulfate 220 mg p.o. daily. 12. Coreg 25 mg p.o. b.i.d. 13. Drisdol 1.25 mg p.o. q.7 days. 14. Lantus 10 units subcutaneously at bedtime. 15. Keppra 750 mg p.o. b.i.d. FOLLOWUP: The patient may follow up with Dr. Amador at [facility]. The patient may follow up with Dr. Maurer with Neurology Service. The patient will follow up with Dr. Nuñez with Nephrology Service. CONDITION ON DISCHARGE: Fair. ACTIVITY: Ad-arielle. Physical and occupational therapy recommended. DIET: Mechanical soft, ADA. CODE STATUS: Full. DISPOSITION: Discharged to [facility], 11/09/2019. TIME SPENT: Total time preparing and coordinating discharge, 37 minutes. Job ID: [id number]
--- NOTE | 2019-11-11 06:34 | PQF ---
Justus Lau CHARLES DO [id number] CLINICAL DOCUMENTATION CLARIFICATION FORM: POST DISCHARGE Addendum to original discharge summary date: ____ Late entry note date: __ DATE:02/11/2020 ATTN: Marcos Hendricks Please exercise your independent, professional judgment in responding to the clarification form. Clinical indicators are provided on the bottom of this form for your review In your clinical opinion based on clinical findings below, can you please identify the condition as the reason for IP admission if due to: Please check appropriate box(s): [ x ] Sepsis [ ] UTI [ ] Other diagnosis [ ] Unable to determine For continuity of documentation, please document condition throughout progress notes and discharge summary. Thank You. CLINICAL INDICATORS - SIGNS / SYMPTOMS / LABS Laboratory 10/30 WBC 12.4, Plt count 181, Band 22, Neutrophils 58 Blood Culture 10/30 Klebsiella Pneumoniae Urine Culture 10/30 Escherichia Coli, Non-Hemolytic Streptococcus Ct brain 10/30 Impression : No CT evidence of acute intracranial process Brain MRI 11/01 Impression: Acute left cerebellar hemispheric infarction Vital signs 10/30 BP 67/59, Pulse 132, Resp 23, Temp 98.0 ED notes p5 GCS 9 ED notes p5 NIHSS 6 ED notes p13 [place] catheter in place, not in proper position H&P p3 10/30 Dr Myrick Sepsis with etiology is unclear H&P p3 10/30 Dr Myrick New-onset of seizures Consult p1 10/30 Dr Heaton He was found to have a malpositioned [place] with evidence of UTI Consult p2 10/30 Dr Heaton Sepsis 2/2 UTI Hospitalist PN p1 11/01 Dr Maurer With acute left cerebellar Infarction H&P p3 10/30 Lactic acidosis RISK FACTORS H&P p1 10/30 Vascular Dementia H&P p1 10/30 Urinary retention H&P p1 10/30 HTN H&P p1 10/30 HLD H&P p1 10/30 hx of CVA with right sided deficits H&P p1 10/30 DM type 2 H&P p3 10/30 HIEN PN 11/04 BPH TREATMENTS: AUG 05 IV Cefepime 2gm AUG 05 IV Ceftriaxone 2gm Aug 05 IV Vancomycin 1gm AUG 05 IV Levophed 250mls AUG 05 IVF NS 1L AUG 05 IV Metronidazole 500 AUG 05 IV Levofloxacin 750mg Blood Culture 10/30 Urine Culture 10/30 CT Brain 10/30 MRI Brain 11/01 Neurology consult 10/31 Frantz Matamoros ID consult 10/31 Uvaldo Abad (This form is maintained as a part of the permanent medical record) 2014 [email or web address] All Rights Reserved [email or web address]
--- NOTE | 2019-11-11 06:35 | PQF ---
Justus Lau CHARLES DO [id number] CLINICAL DOCUMENTATION CLARIFICATION FORM: POST DISCHARGE Addendum to original discharge summary date: ____ Late entry note date: __ DATE:02/11/2020 ATTN: Marcos Hendricks Please exercise your independent, professional judgment in responding to the clarification form. Clinical indicators are provided on the bottom of this form for your review Please check appropriate box(s): [ x ] UTI please specify if due to or related to (as applicable): [ x ] Indwelling catheter [ ] Unable to determine etiology [ ] Other diagnosis [ ] Unable to determine For continuity of documentation, please document condition throughout progress notes and discharge summary. Thank You. CLINICAL INDICATORS - SIGNS / SYMPTOMS / LABS Urine Culture 10/30 Escherichia Coli, Non-Hemolytic Streptococcus Laboratory 10/30 WBC 12.4, Plt count 181, Band 22, Neutrophils 58 Vital signs 10/30 BP 67/59, Pulse 132, Resp 23, Temp 98.0 ED notes p13 [place] catheter in place, not in proper position Consult p1 10/30 Dr Heaton He was found to have a malpositioned [place] with evidence of UTI Consult p2 10/30 Dr Heaton Sepsis 2/2 UTI RISK FACTORS H&P p1 10/30 Vascular Dementia H&P p1 10/30 Urinary retention H&P p1 10/30 HTN H&P p1 10/30 hx of CVA with right sided deficits H&P p1 10/30 DM type 2 H&P p3 10/30 HIEN PN 11/04 BPH TREATMENT: AUG 05 IV Cefepime 2gm AUG 05 IV Ceftriaxone 2gm Aug 05 IV Vancomycin 1gm AUG 05 IV Levophed 250mls AUG 05 IVF NS 1L AUG 05 IV Metronidazole 500 AUG 05 IV Levofloxacin 750mg Urine Culture 10/30 ID consult 10/31 Dr Beatriz, Uvaldo Palomino Catheter changes 10/31 (This form is maintained as a part of the permanent medical record) 2014 [employer] All Rights Reserved [email or web address]
== END 2019-11-09 15:46 | DRG 698 ==
LOC: ERS 11:27 → MERGE 17:15 → CCU 17:15 → IMCU/EMU 11-02 13:40 → 2SE 11-04 17:47
PROVIDERS: ADMIT Internal Medicine; ATTEND Internal Medicine
PROC: 3E033XZ Introduction of Vasopressor into Peripheral Vein, Percutaneous Approach (ICD-10-PCS; principal; 2019-10-31)
PROC: 009U3ZX Drainage of Spinal Canal, Percutaneous Approach, Diagnostic (ICD-10-PCS; 2019-10-31)
PROC: 02HV33Z Insertion of Infusion Device into Superior Vena Cava, Percutaneous Approach (ICD-10-PCS; 2019-10-31)
PROC: 0T2BX0Z Change Drainage Device in Bladder, External Approach (ICD-10-PCS; 2019-11-01)
DX: T83.511A Infection and inflammatory reaction due to indwelling urethral catheter, initial encounter (principal); A41.51 Sepsis due to Escherichia coli [E. coli]; N17.0 Acute kidney failure with tubular necrosis; I63.542 Cerebral infarction due to unspecified occlusion or stenosis of left cerebellar artery; R40.2212 Coma scale, best verbal response, none, at arrival to emergency department; R65.21 Severe sepsis with septic shock; A41.59 Other Gram-negative sepsis; A40.8 Other streptococcal sepsis; M62.82 Rhabdomyolysis; E87.2 Acidosis; F01.51 Vascular dementia, unspecified severity, with behavioral disturbance; R47.01 Aphasia; N13.8 Other obstructive and reflux uropathy; E87.0 Hyperosmolality and hypernatremia; I69.351 Hemiplegia and hemiparesis following cerebral infarction affecting right dominant side; Z20.828 Contact with and (suspected) exposure to other viral communicable diseases; N39.0 Urinary tract infection, site not specified; R13.10 Dysphagia, unspecified; I10 Essential (primary) hypertension; B95.4 Other streptococcus as the cause of diseases classified elsewhere; I08.1 Rheumatic disorders of both mitral and tricuspid valves; F32.9 Major depressive disorder, single episode, unspecified; E78.5 Hyperlipidemia, unspecified; R40.2352 Coma scale, best motor response, localizes pain, at arrival to emergency department; R40.2132 Coma scale, eyes open, to sound, at arrival to emergency department; R29.706 NIHSS score 6; E11.65 Type 2 diabetes mellitus with hyperglycemia; E55.9 Vitamin D deficiency, unspecified; N40.1 Benign prostatic hyperplasia with lower urinary tract symptoms; R33.8 Other retention of urine; T83.028A Displacement of other urinary catheter, initial encounter; Y84.6 Urinary catheterization as the cause of abnormal reaction of the patient, or of later complication, without mention of misadventure at the time of the procedure; G40.909 Epilepsy, unspecified, not intractable, without status epilepticus; E86.9 Volume depletion, unspecified; E87.6 Hypokalemia; E83.51 Hypocalcemia; E86.0 Dehydration; E83.42 Hypomagnesemia; Z79.82 Long term (current) use of aspirin; Z79.899 Other long term (current) drug therapy; Z79.84 Long term (current) use of oral hypoglycemic drugs; Z28.21 Immunization not carried out because of patient refusal
CPT/HCPCS: 36415; 36416; 36556; 51702; 62270; 70450; 70551; 71045; 74176; 80048; 80053; 80061; 80076; 81003; 81015; 82140; 82306; 82550; 82553; 82570; 82945; 83605; 83690; 83735; 83880; 84146; 84156; 84157; 84300; 84443; 84484; 84540; 85014; 85018; 85025; 85049; 86140; 87040; 87045; 87046; 87070; 87077; 87086; 87149; 87186; 87205; 87324; 87427; 87449; 87635; 89051; 93005; 93306; 93880; 95712; 95816; 95819; 95957; 96361; 96365; 96375; 99292; J0692; J0696; J1644; J1815; J1940; J1953; J1956; J2060; J2185; J3370; J3475; J3480; J3490; J7050; S0028; U0003

== ENCOUNTER 2022-02-05 17:40 | Emergency (ER) | payer MEDICARE, OTHER | END 2022-02-05 20:15 | LOC: ERS 17:40 | DX: S63.501A Unspecified sprain of right wrist, initial encounter (principal); E11.22 Type 2 diabetes mellitus with diabetic chronic kidney disease; I12.9 Hypertensive chronic kidney disease with stage 1 through stage 4 chronic kidney disease, or unspecified chronic kidney disease; N18.9 Chronic kidney disease, unspecified; D63.1 Anemia in chronic kidney disease; F01.50 Vascular dementia, unspecified severity, without behavioral disturbance, psychotic disturbance, mood disturbance, and anxiety; Z86.73 Personal history of transient ischemic attack (TIA), and cerebral infarction without residual deficits; Z79.82 Long term (current) use of aspirin; Z79.4 Long term (current) use of insulin; Z79.899 Other long term (current) drug therapy; W19.XXXA Unspecified fall, initial encounter ==